=== PATIENT | female | born 1965 | race Two or more races ===

== ENCOUNTER 2018-04-12 09:22 | Emergency (ER) | payer MEDICAID ==
[~2018-04-12] VITALS: Ht 149.9 cm; Wt 72.0 kg
[~2018-04-12 09:22] MED LIST: ALBU8HFA PO; CYCL-1 PO; ESCI10TA PO; ESTR1TAB19 PO; PANT-47 PO; TRAM50TA2 PO
[2018-04-12] MEDS ORDERED: diphenhydrAMINE 50 mg/ml inj IV ONE (10:05)
[2018-04-12] MEDS ORDERED: proCHLORperazine 10 MG/2 ml inj IV ONE (10:05)
[2018-04-12 11:13] VITALS: BP 130/61
== END 2018-04-12 11:15 | disposition home or self-care (01) ==
LOC: ER 09:23
DX: G43.909 Migraine, unspecified, not intractable, without status migrainosus (principal); K21.9 Gastro-esophageal reflux disease without esophagitis; G89.29 Other chronic pain; Z90.410 Acquired total absence of pancreas; Z79.899 Other long term (current) drug therapy
CPT/HCPCS: 70450; 96374; 96375; 99284; J0780; J1200

== ENCOUNTER 2019-03-30 17:05 | Emergency (ER) | payer MEDICAID ==
[~2019-03-30] VITALS: Ht 149.9 cm; Wt 71.0 kg
[2019-03-30 18:03] VITALS: BP 112/72
== END 2019-03-30 18:07 | disposition home or self-care (01) ==
LOC: ER 17:06
DX: M79.605 Pain in left leg (principal); K21.9 Gastro-esophageal reflux disease without esophagitis; G89.29 Other chronic pain; F41.9 Anxiety disorder, unspecified; Z90.710 Acquired absence of both cervix and uterus; Z79.899 Other long term (current) drug therapy
CPT/HCPCS: 99281

== ENCOUNTER 2020-03-19 21:25 | Emergency (ER) | payer MEDICAID ==
[~2020-03-19] VITALS: Ht 149.9 cm; Wt 71.3 kg
[2020-03-19 22:05] LABS: CLARITY,URINE CLEAR (Clear); COLOR,URINE YELLOW (Yellow); GLUCOSE, URINE NEGATIVE (Neg); KETONES,URINE NEGATIVE (Neg); LEUKOCYTE ESTERASE ,URINE NEGATIVE (Neg); NITRITES, URINE NEGATIVE (Neg); OCCULT BLOOD,URINE MODERATE (Neg); PROTEIN,URINE NEGATIVE (Neg); URINE HCG NEGATIVE (NEG); UROBILINOGEN,URINE 0.2 E.U/dL (0.2-1.0)
[2020-03-19 22:15] LABS: BACTERIA,URINE FEW /HPF (Neg); MUCUS STRANDS FEW /LPF (Neg); RBC,URINE 0-2 /HPF (0-2); SQUAMOUS EPITHELIAL CELL,UR FEW /LPF (FEW); UA COLLECTION TYPE CLN CATCH MIDSTREAM
[2020-03-19 22:22] LABS: BASOPHILS # (AUTO) 0.1 X10'3 (0-0.2); BASOPHILS % (AUTO) 0.8 % (0-1); EOSINOPHILS # (AUTO) 0.2 X10'3 (0-0.9); EOSINOPHILS % (AUTO) 1.6 % (0-6); HEMATOCRIT 38.1 % (35.0-45.0); LYMPHOCYTES # (AUTO) 3.7 X10'3 (1.1-4.8); LYMPHOCYTES % (AUTO) 35.4 % (21-51); MEAN CORPUSCULAR HEMOGLOBIN 31.2 PG (27.0-31.0); MEAN CORPUSCULAR HGB CONC 34.1 g/dL (33.0-36.5); MEAN CORPUSCULAR VOLUME 91.3 FL (78-98); MEAN PLATELET VOLUME 8.7 FL (7.4-10.4); MONOCYTES # (AUTO) 0.7 X10'3 (0-0.9); MONOCYTES % (AUTO) 7.2 % (2-12); NEUTROPHILS # (AUTO) 5.7 X10'3 (1.8-7.7); PLATELET COUNT 294 X10'3 (140-440); RED BLOOD COUNT 4.17 X10'6 (4.20-5.60); RED CELL DISTRIBUTION WIDTH 13.1 % (11.5-14.5); WHITE BLOOD COUNT 10.3 X10'3 (4.5-11.0)
[2020-03-19 22:52] LABS: ALANINE AMINOTRANSFERASE 41 U/L (12-78); ALBUMIN 3.4 G/DL (3.4-5.0); ALBUMIN/GLOBULIN RATIO 0.8 (1.1-1.5); ALKALINE PHOSPHATASE 102 IU/L (46-116); ANION GAP 9 (8-16); ASPARTATE AMINO TRANSFERASE 33 U/L (10-37); BILIRUBIN,TOTAL 0.7 MG/DL (0.1-1.0); BLOOD UREA NITROGEN 20 MG/DL (7-18); CALCIUM 8.9 MG/DL (8.5-10.1); CHLORIDE 103 MMOL/L (99-107); CREATININE 1.05 MG/DL (0.40-0.90); GLUCOSE 91 MG/DL (70-104); LIPASE 270 U/L (73-393); POTASSIUM 3.4 MMOL/L (3.5-5.1); SODIUM 138 MMOL/L (135-145); TOTAL CARBON DIOXIDE 25.8 MMOL/L (24-32); TOTAL PROTEIN 7.8 G/DL (6.4-8.2); eGFR 54 ML/MIN
[2020-03-19] MEDS ORDERED: ketorolac tromethamine 15mg/ml inj. IM ONE (23:00)
[2020-03-19] MEDS ORDERED: ondansetron 4mg rapidly disintigrating tab PO ONE (23:00)
[2020-03-19] MEDS ORDERED: metroNIDAZOLE 500mg tablet PO ONE (23:40)
[2020-03-19] MEDS ORDERED: sulfamethoxazole/trimethoprim DS (800/160mg) tablet PO ONE (23:40)
[2020-03-19] MEDS ORDERED: METR-159 PO (23:48)
[2020-03-19] MEDS ORDERED: SULF1TAB49 PO (23:48)
[2020-03-19] MEDS ORDERED: ONDA4TAB6 PO (23:50)
[2020-03-19 23:57] VITALS: BP 130/80
== END 2020-03-19 23:59 | disposition home or self-care (01) ==
LOC: ER 21:25
DX: K52.9 Noninfective gastroenteritis and colitis, unspecified (principal); G43.909 Migraine, unspecified, not intractable, without status migrainosus; K21.9 Gastro-esophageal reflux disease without esophagitis; G89.29 Other chronic pain; F41.9 Anxiety disorder, unspecified; Z90.710 Acquired absence of both cervix and uterus; Z79.899 Other long term (current) drug therapy
CPT/HCPCS: 36415; 74176; 80053; 81001; 81025; 83690; 85025; 87088; 96372; 99284; J1885; J3490

== ENCOUNTER 2020-04-17 16:09 | Emergency (ER) | payer MEDICAID ==
[~2020-04-17] VITALS: Ht 149.9 cm; Wt 70.5 kg
[~2020-04-17 16:09] MED LIST changes: +ONDA4TAB6 PO
[2020-04-17 16:25] VITALS: BP 109/64
[2020-04-17 17:35] LABS: BASOPHILS # (AUTO) 0.1 X10'3 (0-0.2); BASOPHILS % (AUTO) 0.7 % (0-1); EOSINOPHILS # (AUTO) 0.2 X10'3 (0-0.9); EOSINOPHILS % (AUTO) 1.8 % (0-6); HEMATOCRIT 36.9 % (35.0-45.0); HEMOGLOBIN 12.6 g/dl (12.0-16.0); LYMPHOCYTES # (AUTO) 3.4 X10'3 (1.1-4.8); LYMPHOCYTES % (AUTO) 34.7 % (21-51); MEAN CORPUSCULAR HEMOGLOBIN 31.3 PG (27.0-31.0); MEAN CORPUSCULAR HGB CONC 34.1 g/dL (33.0-36.5); MEAN PLATELET VOLUME 8.5 FL (7.4-10.4); MONOCYTES # (AUTO) 0.9 X10'3 (0-0.9); MONOCYTES % (AUTO) 8.7 % (2-12); NEUTROPHILS # (AUTO) 5.3 X10'3 (1.8-7.7); NEUTROPHILS % (AUTO) 54.1 % (42-75); PLATELET COUNT 298 X10'3 (140-440); RED BLOOD COUNT 4.01 X10'6 (4.20-5.60); RED CELL DISTRIBUTION WIDTH 13.5 % (11.5-14.5); WHITE BLOOD COUNT 9.8 X10'3 (4.5-11.0)
[2020-04-17 17:50] LABS: ALANINE AMINOTRANSFERASE 38 U/L (12-78); ALBUMIN 3.7 G/DL (3.4-5.0); ALKALINE PHOSPHATASE 128 IU/L (46-116); ANION GAP 6 (8-16); ASPARTATE AMINO TRANSFERASE 30 U/L (10-37); BILIRUBIN,TOTAL 0.5 MG/DL (0.1-1.0); BLOOD UREA NITROGEN 20 MG/DL (7-18); BUN/CREATININE RATIO 24.7 (6.6-38.0); C-REACTIVE PROTEIN 0.75 MG/DL (0.0-0.5); CALCIUM 8.5 MG/DL (8.5-10.1); CHLORIDE 104 MMOL/L (99-107); CREATININE 0.81 MG/DL (0.40-0.90); GLUCOSE 94 MG/DL (70-104); POTASSIUM 3.9 MMOL/L (3.5-5.1); SODIUM 138 MMOL/L (135-145); TOTAL CARBON DIOXIDE 28.2 MMOL/L (24-32); TOTAL PROTEIN 7.5 G/DL (6.4-8.2); eGFR 73 ML/MIN
[2020-04-17] MEDS ORDERED: ketorolac tromethamine 15mg/ml inj. IM ONE (17:55)
[2020-04-17] MEDS ORDERED: triamcinolone acetonide 40mg/ml inj IM ONE (17:55)
== END 2020-04-17 18:09 | disposition home or self-care (01) ==
LOC: ER 16:09
DX: M79.672 Pain in left foot (principal); M25.572 Pain in left ankle and joints of left foot; K21.9 Gastro-esophageal reflux disease without esophagitis; G89.29 Other chronic pain; F41.9 Anxiety disorder, unspecified; Z90.710 Acquired absence of both cervix and uterus; Z79.899 Other long term (current) drug therapy
CPT/HCPCS: 36415; 73610; 80053; 85025; 85651; 86140; 96372; 99284; J1885; J3301

== ENCOUNTER 2020-07-12 10:51 | Emergency (ER) | payer MEDICAID ==
[~2020-07-12] VITALS: Ht 149.9 cm; Wt 74.0 kg
[2020-07-12] MEDS ORDERED: METR500T PO (11:16)
[2020-07-12] MEDS ORDERED: SULF1TAB49 PO (11:16)
[2020-07-12 11:30] VITALS: BP 113/67
== END 2020-07-12 11:31 | disposition home or self-care (01) ==
LOC: ER 10:51
DX: R10.32 Left lower quadrant pain (principal); G43.909 Migraine, unspecified, not intractable, without status migrainosus; K21.9 Gastro-esophageal reflux disease without esophagitis; G89.29 Other chronic pain; F41.9 Anxiety disorder, unspecified; Z90.710 Acquired absence of both cervix and uterus; Z79.899 Other long term (current) drug therapy
CPT/HCPCS: 99283

== ENCOUNTER 2020-08-26 16:09 | Emergency (ER) | payer MEDICAID ==
[~2020-08-26] VITALS: Ht 149.9 cm; Wt 72.0 kg
[2020-08-26 16:23] VITALS: BP 112/59
[2020-08-26] MEDS ORDERED: ketorolac trometh. 30mg/ml inj. IM ONE (17:15)
[2020-08-26] MEDS ORDERED: cyclobenzaprine 10mg tablet PO ONE (17:15)
[2020-08-26] MEDS ORDERED: IBUP-1984 PO (17:17)
[2020-08-26] MEDS ORDERED: CYCL-394 PO (17:17)
== END 2020-08-26 18:07 | disposition home or self-care (01) ==
LOC: ER 16:09
DX: M54.31 Sciatica, right side (principal); M54.89 Other dorsalgia; G43.909 Migraine, unspecified, not intractable, without status migrainosus; K21.9 Gastro-esophageal reflux disease without esophagitis; G89.29 Other chronic pain; F41.9 Anxiety disorder, unspecified; Z90.710 Acquired absence of both cervix and uterus; Z79.899 Other long term (current) drug therapy
CPT/HCPCS: 96372; 99283; J1885

== ENCOUNTER 2020-08-31 12:48 | Emergency (ER) | payer MEDICAID ==
[~2020-08-31] VITALS: Ht 149.9 cm; Wt 72.0 kg
[~2020-08-31 12:48] MED LIST changes: +CYCL-394 PO; +IBUP-1984 PO
[2020-08-31 12:52] VITALS: BP 116/42
[2020-08-31] MEDS ORDERED: DICL100G30 TOP (14:13)
== END 2020-08-31 14:36 | disposition home or self-care (01) ==
LOC: ER 12:48
DX: M79.671 Pain in right foot (principal); M79.672 Pain in left foot; G43.909 Migraine, unspecified, not intractable, without status migrainosus; K21.9 Gastro-esophageal reflux disease without esophagitis; G89.29 Other chronic pain; Z90.710 Acquired absence of both cervix and uterus; Z72.89 Other problems related to lifestyle; Z79.899 Other long term (current) drug therapy
CPT/HCPCS: 99283

== ENCOUNTER 2021-10-28 20:56 | Emergency (ER) | payer MEDICAID ==
[~2021-10-28] VITALS: Ht 149.9 cm; Wt 72.7 kg
[~2021-10-28 20:56] MED LIST changes: -CYCL-394 PO; +DICL100G30 TOP; -IBUP-1984 PO
[2021-10-28] MEDS ORDERED: ERYT1OIN6 RIGHTEYE (23:02)
[2021-10-28] MEDS ORDERED: erythromycin ophthalmic ointment 1gm tube RIGHTEYE ONE (23:05)
[2021-10-28 23:22] VITALS: BP 117/79
--- NOTE | 2021-10-28 23:27 | NUR ---
MEDICATION ADMINISTERED TO PATIENT. SHE TOLERATED WELL
== END 2021-10-28 23:29 | disposition home or self-care (01) ==
LOC: ER 22:31
DX: S05.01XA Injury of conjunctiva and corneal abrasion without foreign body, right eye, initial encounter (principal); H11.31 Conjunctival hemorrhage, right eye; G43.909 Migraine, unspecified, not intractable, without status migrainosus; K21.9 Gastro-esophageal reflux disease without esophagitis; G89.29 Other chronic pain; M54.9 Dorsalgia, unspecified; F31.9 Bipolar disorder, unspecified; Z79.899 Other long term (current) drug therapy; W22.8XXA Striking against or struck by other objects, initial encounter; Y93.89 Activity, other specified; Y92.89 Other specified places as the place of occurrence of the external cause; Y99.8 Other external cause status
CPT/HCPCS: 99283

== ENCOUNTER 2022-03-03 17:57 | Emergency (ER) | payer MEDICAID ==
[~2022-03-03] VITALS: Ht 149.9 cm; Wt 73.0 kg
[2022-03-03 18:58] VITALS: BP 134/79
== END 2022-03-03 22:56 | disposition home or self-care (01) ==
LOC: ER 17:57
DX: Q15.9 Congenital malformation of eye, unspecified (principal); G43.909 Migraine, unspecified, not intractable, without status migrainosus; F41.9 Anxiety disorder, unspecified; G89.29 Other chronic pain; F32.9 Major depressive disorder, single episode, unspecified; Z90.710 Acquired absence of both cervix and uterus; Z98.890 Other specified postprocedural states; Z79.899 Other long term (current) drug therapy
CPT/HCPCS: 99281

== ENCOUNTER 2022-05-09 10:41 | Emergency (ER) | payer MEDICAID ==
[~2022-05-09] VITALS: Ht 149.9 cm; Wt 72.7 kg
[2022-05-09 10:55] VITALS: BP 124/75
[2022-05-09] MEDS ORDERED: ALBU6.7H9 INH (13:32)
== END 2022-05-09 14:22 | disposition home or self-care (01) ==
LOC: ER 10:41
DX: J45.21 Mild intermittent asthma with (acute) exacerbation (principal); Z20.822 Contact with and (suspected) exposure to COVID-19; J06.9 Acute upper respiratory infection, unspecified; G43.909 Migraine, unspecified, not intractable, without status migrainosus; G89.29 Other chronic pain; M54.9 Dorsalgia, unspecified; F31.9 Bipolar disorder, unspecified; Z79.899 Other long term (current) drug therapy
CPT/HCPCS: 71045; 87635; 93005; 99285; C9803

== ENCOUNTER 2022-09-22 17:45 | Emergency (ER) | payer MEDICAID ==
[~2022-09-22] VITALS: Ht 149.9 cm; Wt 71.4 kg
[~2022-09-22 17:45] MED LIST changes: +ALBU6.7H14 INH
[2022-09-22 20:00] VITALS: BP 111/70
[2022-09-22 20:38] LABS: CLARITY,URINE SLIGHTLY CLOUDY (Clear); COLOR,URINE ORANGE (Yellow)
[2022-09-22 20:58] LABS: UA COLLECTION TYPE CLN CATCH MIDSTREAM
[2022-09-22 21:06] LABS: BACTERIA,URINE FEW /HPF (Neg); MUCUS STRANDS FEW /LPF (Neg); RBC,URINE 0-2 /HPF (0-2); SQUAMOUS EPITHELIAL CELL,UR FEW /LPF (FEW)
[2022-09-22] MEDS ORDERED: cephalexin 250mg capsule PO ONE (22:05)
[2022-09-22] MEDS ORDERED: CEFD300C21 PO (22:08)
--- NOTE | 2022-09-25 09:45 | NUR ---
LAB REPORT CAME BACK WITH URINE CULTURE RESULT AND SENSITIVITY. PATIENT WAS GIVEN CEFDINIR UPON DC FROM ER VISIT, BUT THE BACTERIA IS RESISTENT TO THIS MED. ER MD, DR. SETHI, NOTIFIED OF THIS RESULT AND ORDER FOR BACTRIM WAS PRESCRIBED. NEW MEDICATION (BACTRIM) WAS PHONED IN TO [facility] [address] [address] [facility]. PATIENT IS AWARE OF THE CHANGE IN MEDICATIONS AND WILL CARDIAC CATH RN NEW MEDICATION TODAY.
== END 2022-09-22 22:21 | disposition home or self-care (01) ==
LOC: ER 17:46
DX: N39.0 Urinary tract infection, site not specified (principal); G43.909 Migraine, unspecified, not intractable, without status migrainosus; K21.9 Gastro-esophageal reflux disease without esophagitis; G89.29 Other chronic pain; M54.50 Low back pain, unspecified; Z90.710 Acquired absence of both cervix and uterus; Z87.891 Personal history of nicotine dependence
CPT/HCPCS: 81001; 87077; 87088; 87186; 99283

== ENCOUNTER 2023-02-14 15:46 | Emergency (ER) | payer MEDICAID ==
[~2023-02-14] VITALS: Ht 149.9 cm; Wt 80.0 kg
[2023-02-14 16:49] LABS: BASOPHILS # (AUTO) 0.1 X10'3 (0-0.2); BASOPHILS % (AUTO) 0.6 % (0-1); EOSINOPHILS # (AUTO) 0.3 X10'3 (0-0.9); EOSINOPHILS % (AUTO) 3.9 % (0-6); HEMOGLOBIN 12.3 g/dl (12.0-16.0); LYMPHOCYTES # (AUTO) 2.5 X10'3 (1.1-4.8); LYMPHOCYTES % (AUTO) 29.2 % (21-51); MEAN CORPUSCULAR HEMOGLOBIN 29.9 PG (27.0-31.0); MEAN CORPUSCULAR HGB CONC 33.2 g/dL (33.0-36.5); MEAN CORPUSCULAR VOLUME 90.2 FL (78-98); MEAN PLATELET VOLUME 8.6 FL (7.4-10.4); MONOCYTES # (AUTO) 0.7 X10'3 (0-0.9); MONOCYTES % (AUTO) 8.4 % (2-12); NEUTROPHILS % (AUTO) 57.9 % (42-75); PLATELET COUNT 303 X10'3 (140-440); RED CELL DISTRIBUTION WIDTH 13.9 % (11.5-14.5); WHITE BLOOD COUNT 8.7 X10'3 (4.5-11.0)
[2023-02-14 17:08] LABS: ALANINE AMINOTRANSFERASE 45 U/L (12-78); ALBUMIN 3.5 G/DL (3.4-5.0); ALBUMIN/GLOBULIN RATIO 0.8 (1.1-1.5); ALKALINE PHOSPHATASE 143 IU/L (46-116); AMYLASE 85 U/L (25-115); ANION GAP 8 (8-16); ASPARTATE AMINO TRANSFERASE 39 U/L (10-37); BILIRUBIN,TOTAL 0.5 MG/DL (0.1-1.0); BLOOD UREA NITROGEN 15 MG/DL (7-18); CHLORIDE 105 MMOL/L (99-107); CREATININE 0.88 MG/DL (0.40-0.90); GLUCOSE 142 MG/DL (70-104); LIPASE 338 U/L (73-393); POTASSIUM 3.5 MMOL/L (3.5-5.1); SODIUM 142 MMOL/L (135-145); TOTAL CARBON DIOXIDE 28.6 MMOL/L (24-32); TOTAL PROTEIN 7.9 G/DL (6.4-8.2); eGFR 66 ML/MIN
[2023-02-14] MEDS ORDERED: PSYL575P22 PO (17:43)
[2023-02-14] MEDS ORDERED: AMOX-117 PO (17:43)
[2023-02-14] MEDS ORDERED: amox tr/potassium clavulanate 875/125mg TAB PO ONE (17:45)
[2023-02-14 17:58] VITALS: BP 140/68
== END 2023-02-14 17:59 | disposition home or self-care (01) ==
LOC: ER 15:46
DX: K52.9 Noninfective gastroenteritis and colitis, unspecified (principal); G43.909 Migraine, unspecified, not intractable, without status migrainosus; K21.9 Gastro-esophageal reflux disease without esophagitis; I50.9 Heart failure, unspecified; Z90.710 Acquired absence of both cervix and uterus
CPT/HCPCS: 36415; 80053; 82150; 83690; 85025; 99283

== ENCOUNTER 2023-12-05 12:26 | Emergency (ER) | payer MEDICAID ==
[~2023-12-05] VITALS: Ht 149.9 cm; Wt 68.2 kg
[~2023-12-05 12:26] MED LIST changes: +CEPH-585 PO; -DICL100G30 TOP; +DICL100G59 TOP; +PSYL575P22 PO
[2023-12-05 12:37] VITALS: BP 124/69; PULSE 79; RESP 16; TEMP 98; O2SAT 95
[2023-12-05 13:32] LABS: CLARITY,URINE SLIGHTLY CLOUDY (Clear); COLOR,URINE ORANGE (Yellow); UA COLLECTION TYPE CLN CATCH MIDSTREAM
[2023-12-05 13:34] LABS: HYALINE CASTS 0-3 /LPF (NEGATIVE); MUCUS STRANDS MODERATE /LPF (Neg); SQUAMOUS EPITHELIAL CELL,UR MANY /LPF (FEW)
[2023-12-05 13:35] LABS: BACTERIA,URINE 2+ /HPF (Neg); TRANSITIONAL EPI CELLS,URINE FEW /HPF; WBC,URINE 20-30 /HPF (0-4)
[2023-12-05 13:36] LABS: WBC CLUMPS,URINE FEW /HPF (NEGATIVE)
[2023-12-05] MEDS ORDERED: CEPH-585 PO (13:42)
== END 2023-12-05 13:59 | disposition home or self-care (01) ==
LOC: ER 12:27
DX: N39.0 Urinary tract infection, site not specified (principal); Z87.440 Personal history of urinary (tract) infections; G43.909 Migraine, unspecified, not intractable, without status migrainosus; G89.29 Other chronic pain; Z90.710 Acquired absence of both cervix and uterus; Z86.73 Personal history of transient ischemic attack (TIA), and cerebral infarction without residual deficits; Z79.2 Long term (current) use of antibiotics; Z79.899 Other long term (current) drug therapy
CPT/HCPCS: 81001; 99283

== ENCOUNTER 2024-06-19 14:00 | Emergency (ER) | payer MEDICAID ==
[~2024-06-19] VITALS: Ht 149.9 cm; Wt 60.0 kg
[~2024-06-19 14:00] MED LIST changes: -CEPH-585 PO
[2024-06-19] MEDS ORDERED: iohexol 350MG/ML 100ml bottle IV ONE (14:08)
[2024-06-19 14:26] LABS: BASOPHILS # (AUTO) 0.1 X10'3 (0-0.2); BASOPHILS % (AUTO) 0.6 % (0-1); EOSINOPHILS # (AUTO) 0.3 X10'3 (0-0.9); EOSINOPHILS % (AUTO) 3.3 % (0-6); HEMOGLOBIN 11.7 g/dl (12.0-16.0); LYMPHOCYTES # (AUTO) 2.3 X10'3 (1.1-4.8); LYMPHOCYTES % (AUTO) 28.6 % (21-51); MEAN CORPUSCULAR HEMOGLOBIN 30.4 PG (27.0-31.0); MEAN CORPUSCULAR HGB CONC 33.3 g/dL (33.0-36.5); MEAN CORPUSCULAR VOLUME 91.3 FL (78-98); MEAN PLATELET VOLUME 9.8 FL (7.4-10.4); MONOCYTES # (AUTO) 0.5 X10'3 (0-0.9); MONOCYTES % (AUTO) 6.1 % (2-12); NEUTROPHILS # (AUTO) 4.9 X10'3 (1.8-7.7); NEUTROPHILS % (AUTO) 61.4 % (42-75); PLATELET COUNT 271 X10'3 (140-440); RED BLOOD COUNT 3.83 X10'6 (4.20-5.60); RED CELL DISTRIBUTION WIDTH 13.4 % (11.5-14.5)
[2024-06-19 14:30] LABS: ALBUMIN 3.2 G/DL (3.4-5.0); ANION GAP 5 (8-16); BLOOD UREA NITROGEN 17 MG/DL (7-18); BUN/CREATININE RATIO 20.7 (10.0-20.0); CALCIUM 8.3 MG/DL (8.5-10.1); CHLORIDE 105 MMOL/L (99-107); CREATININE 0.82 MG/DL (0.40-0.90); GLUCOSE 108 MG/DL (70-104); SODIUM 137 MMOL/L (135-145); TOTAL CARBON DIOXIDE 26.9 MMOL/L (24-32); eCRCL 50 ML/MIN; eGFR 71 ML/MIN
[2024-06-19 14:39] LABS: APTT 25 SECONDS (22-32); INR 1.1 INR; PROTHROMBIN TIME 11.6 SECONDS (9.0-12.0)
[2024-06-19] MEDS: ondansetron/PF 4mg/2ml inj IV ONE (16:09)
[2024-06-19] MEDS: acetaminophen 325mg tablet PO ONE (16:09)
[2024-06-19] MEDS: ketorolac trometh 15mg/ml vial 15 MG/ML ML IV ONE (16:15)
[2024-06-19 16:26] LABS: BILIRUBIN,URINE NEGATIVE (Neg); CLARITY,URINE CLEAR (Clear); COLOR,URINE YELLOW (Yellow); GLUCOSE, URINE NEGATIVE (Neg); KETONES,URINE NEGATIVE (Neg); LEUKOCYTE ESTERASE ,URINE NEGATIVE (Neg); NITRITES, URINE NEGATIVE (Neg); OCCULT BLOOD,URINE NEGATIVE (Neg); PROTEIN,URINE NEGATIVE (Neg); UROBILINOGEN,URINE 0.2 E.U/dL (0.2-1.0)
[2024-06-19 16:39] LABS: URINE AMPHETAMINE SCREEN NEGATIVE (Neg); URINE BARBITUATE SCREEN NEGATIVE (Neg); URINE BENZODIAZEPINES SCREEN NEGATIVE (Neg); URINE CANNABINOID SCREEN NEGATIVE (Neg); URINE COCAINE SCREEN NEGATIVE (Neg); URINE METHADONE SCREEN NEGATIVE (Neg); URINE OPIATE SCREEN NEGATIVE (Neg); URINE PHENCYCLIDINE SCREEN NEGATIVE (Neg)
[2024-06-19 16:42] LABS: UA COLLECTION TYPE CLN CATCH MIDSTREAM
[2024-06-19 17:06] VITALS: BP 125/69; PULSE 69; RESP 12; TEMP 98.3; O2SAT 98
== END 2024-06-19 17:20 | disposition home or self-care (01) ==
LOC: ER 14:00
DX: G43.109 Migraine with aura, not intractable, without status migrainosus (principal); K21.9 Gastro-esophageal reflux disease without esophagitis; G89.29 Other chronic pain; M54.9 Dorsalgia, unspecified; F41.9 Anxiety disorder, unspecified; F32.A Depression, unspecified; Z79.899 Other long term (current) drug therapy; Z86.73 Personal history of transient ischemic attack (TIA), and cerebral infarction without residual deficits; Z90.710 Acquired absence of both cervix and uterus
CPT/HCPCS: 36415; 70450; 70496; 70498; 71045; 80048; 80305; 81003; 82948; 84443; 85025; 85610; 85730; 93005; 96374; 96375; 99285; J1885; J2405; Q9967

== ENCOUNTER 2025-04-19 18:45 | Emergency (ER) | payer MEDICAID ==
[~2025-04-19] VITALS: Ht 149.9 cm; Wt 62.5 kg
--- NOTE | 2025-04-19 18:49 | Physician Documentation ---
History of Present Illness General Stated Complaint: CHEST PAIN Time Seen by MD: 18:48 Primary Medical Doctor: [facility] History of Present Illness Initial Comments The patient is a 59-year-old female who presents with a complaint of left-sided chest pain and chest wall tenderness as well as pain that worsens when she moves her left arm. The patient states he also has some pleuritic chest pain she states it hurts when she takes a deep breath and she feels slightly short of breath. The patient states symptoms gradually started this morning and they progress to with the point where the pain is approximately an 8/10. She states she did not take anything for the pain. She has no heart history she has a family history and she is not currently smoker she also does not have any hypertension she does have an estrogen patch that she takes. She denies any history of blood clots in the past. Patient denies any fevers chills nausea or vomiting the patient's symptoms are moderate and persistent. Medication Reconciliation Allergies: Coded Allergies: No Known Allergies (Unverified , 06/19/24) Scheduled Albuterol Sulfate (Proventil Hfa), 2 PUFFS INH Q6H Diclofenac Sodium (Diclofenac Sodium), 1 APPLIC TOP Q6H Escitalopram Oxalate (Lexapro), 1 TABLET PO DAILY, (Reported) Estradiol (Estradiol), 1 TAB PO DAILY, (Reported) Ondansetron Hcl (Zofran), 1 TAB PO Q12H PRN Pantoprazole Sodium (PROTONIX tablet), 1 TABLET PO BID, (Reported) Psyllium Husk (with Sugar) (Metamucil Powder), 5 ML PO DAILY Scheduled PRN Cyclobenzaprine* (Cyclobenzaprine*), 1 TABLET PO Q6H PRN for muscle spasms, (Reported) Tramadol Hcl (Tramadol Hcl), 1 TABLET PO Q4H PRN for pain, (Reported) albuterol inhaler (Pro-Air Inhaler), 1-2 PUFFS PO Q4H PRN for SOB or wheezing Past Medical History Past Medical History: CVA/TIA/Stroke, Headache, Migraine, Diverticulitis, GERD, Chronic Back Pain, Anxiety, Depression Past Surgical History: hysterectomy Alcohol Use: Rarely Drug Use: none Lives with: Family Lives In: Home Review of Systems All Other Systems at this time: Reviewed and Negative Physical Exam Physical Exam Physical Exam VITALS: Reviewed and as above. GENERAL: Alert, no apparent distress. HEENT: Normocephalic, atraumatic, PERRL, EOMI, dry mucosa, no erythema RESPIRATORY: Lungs clear, normal breath sounds, no respiratory distress. CHEST: No accessory muscle use, no retractions CV: Regular rate, rhythm, no edema, no murmur, No: JVD GI: Soft, non-tender, bowels sounds present, no rebound, guarding, or rigidity BACK: No CVA tenderness, or swelling MUSCULOSKELETAL: Tender upper left chest wall some pain with range of motion of the left shoulder particularly with abduction of the left shoulder. SKIN: Warm and dry, no rash NEURO: Oriented x4, No motor or sensory deficit PSYCH: Normal mood and affect, no agitation Progress Results/Orders Results/Orders Orders - OHCHAD BURTON MD Chest,Single View (04/19/25 19:10) Saline Lock (04/19/25 18:55) Monitor (04/19/25 18:55) Oxygen (04/19/25 18:55) Completed Orders - MTCHAD BURTON MD Cbc/Diff (04/19/25 18:55) MG (04/19/25 18:55) PBNP (04/19/25 18:55) Chest,Single View (04/19/25 19:10) BMP (04/19/25 18:55) Hs Troponin I W Calculations (04/19/25 18:55) D-Dimer (04/19/25 18:58) Ketorolac Trometh 30mg/Ml Vial (Toradol (04/19/25 19:20) Vital Signs 04/19/25 04/19/25 04/19/25 04/19/25 18:50 19:24 19:27 20:27 Temp 98.3 Pulse 85 83 Resp 16 16 16 18 B/P (MAP) 146/64 128/67 (87) Pulse Ox 98 99 O2 Flow Rate 0 04/19/25 20:28 Temp 98.3 Pulse 80 Resp 16 B/P (MAP) 128/67 Pulse Ox 100 Laboratory Tests Test 04/19/25 18:59 White Blood Count 9.2 Red Blood Count 4.25 Hemoglobin 13.0 Hematocrit 38.1 Mean Corpuscular Volume 89.5 Mean Corpuscular Hemoglobin 30.5 Mean Corpuscular Hemoglobin Concent 34.1 Red Cell Distribution Width 13.4 Platelet Count 307 Mean Platelet Volume 9.7 Neutrophils (%) (Auto) 56.7 Lymphocytes (%) (Auto) 30.1 Monocytes (%) (Auto) 7.1 Eosinophils (%) (Auto) 5.2 Basophils (%) (Auto) 0.9 Neutrophils # (Auto) 5.2 Lymphocytes # (Auto) 2.8 Monocytes # (Auto) 0.6 Eosinophils # (Auto) 0.5 Basophils # (Auto) 0.1 CBC Comment D-Dimer 0.51 H D-Dimer Comment Sodium Level 140 Potassium Level 3.7 Chloride Level 105 Carbon Dioxide Level 26.6 Anion Gap 8 Blood Urea Nitrogen 14 Creatinine 0.71 Estimated GFR/1.73 m2 84 BUN/Creatinine Ratio 19.7 Glucose Level 115 H Calcium Level 8.8 Magnesium Level 1.8 Troponin I High Sensitivity 4 Pro-B-Type Natriuretic Peptide < 30 Albumin 3.5 Chemistry Comments Medical Decision Making Findings Patient's EKG was interpreted me as showing a normal sinus rhythm with a rate of [address]-elevation or ST-depression and a there was a normal axis the patient's EKG was interpreted as normal EKG her pulse oximetry has been interpreted as normal and adequate, and nurse monitoring was interpreted as a sinus rhythm. The patient presented with a reproducible left-sided chest pain the patient does take an estrogen based patch, however her D-dimer was 0.51 and given a age based D-dimer scale she is negative for high-risk for pulmonary embolisms and given the fact that this pain is reproducible I do not feel she has a pulmonary embolism other etiologies considered for cardiac ischemia as well as infectious etiologies he has been not supported by the clinical evidence the patient's heart score is two which puts her at a extremely low risk for a cardiac event. The patient will be discharged with instructions to return for worsening of her symptoms. Labs were reviewed prior hospitalizations were reviewed the patient's chest x-ray has been independently interpreted by me as showing a normal cardiac silhouette normal mediastinum and normal-appearing lung quinn the patient was given a shot of Toradol with some improvement the patient will be advised to use NSAIDs at home the patient is being discharged Departure Disposition: 01 HOME / SELF CARE / HOMELESS Impression: Primary Impression: Chest wall pain Discharge Instructions: Chest Wall Pain Referrals: NO PRIMARY CARE PROVIDER (PCP) Signature Scribe Signature: No scribe Attestation: The note accurately reflects work and decisions made by me.Chad Gibbs MD 04/21/25 14:52 CHAD GIBBS MD Apr 19, 2025 18:49
[2025-04-19 19:09] LABS: MEAN PLATELET VOLUME 9.7 FL (7.4-10.4); RED CELL DISTRIBUTION WIDTH 13.4 % (11.5-14.5)
--- NOTE | 2025-04-19 19:21 | RADIOLOGY REPORT ---
CHEST RADIOGRAPH Indication: CP Technique: Single frontal view of the chest was obtained Comparison: DI CHEST,SINGLE VIEW on DOS: 06/19/24, CHEST,SINGLE VIEW on DOS: 05/09/22 FINDINGS: Lines and Tubes: None Lungs: No focal consolidation. Pleura: No effusion. No pneumothorax. Cardiomediastinal contours: Unremarkable Bones: No acute osseous abnormality. IMPRESSION: No acute cardiopulmonary disease.
[2025-04-19] MEDS: ketorolac trometh 30MG/ML vial 30 MG/ML VIAL IV ONE (19:24)
[2025-04-19 19:28] LABS: CREATININE 0.71 MG/DL (0.40-0.90); PRO BRAIN NATRIURETIC PEPTIDE < 30 PG/ML (0-125); TOTAL CARBON DIOXIDE 26.6 MMOL/L (24-32); eCRCL 57 ML/MIN; eGFR 84 ML/MIN
[2025-04-19 20:28] VITALS: BP 128/67; PULSE 80; RESP 16; TEMP 98.3; O2SAT 100
--- NOTE | 2025-04-20 05:43 | ELECTROCARDIOGRAPH REPORT ---
[facility] Test Date: 2025-04-19 Test Time: 18:52:55 Pat Name: PRANEETH HEAD Department: EMERGENCY ROOM Room: Gender: F Feed Crusher: CAMILA : 1965 Requested By: DEPARTMENT EMERGENCY Order Number: [id number] Reading MD: Measurements Intervals [place] Rate: 82 P: 69 WI: 156 QRS: -27 QRSD: 97 T: 70 QT: 405 QTc: 473 Interpretive Statements Sinus rhythm Borderline left axis deviation Please click the below link to view image of tracing.
== END 2025-04-19 20:30 | disposition home or self-care (01) ==
LOC: ER 18:45
DX: R07.89 Other chest pain (principal); G43.909 Migraine, unspecified, not intractable, without status migrainosus; K21.9 Gastro-esophageal reflux disease without esophagitis; F41.9 Anxiety disorder, unspecified; F32.A Depression, unspecified; Z86.73 Personal history of transient ischemic attack (TIA), and cerebral infarction without residual deficits; Z90.710 Acquired absence of both cervix and uterus; Z79.899 Other long term (current) drug therapy
CPT/HCPCS: 36415; 71045; 80048; 83735; 83880; 84484; 85025; 85379; 93005; 96374; 99285; J1885

== ENCOUNTER 2025-07-20 09:21 | Emergency (ER) | payer MEDICAID ==
[~2025-07-20] VITALS: Ht 149.9 cm; Wt 60.5 kg
[2025-07-20 10:01] LABS: MEAN PLATELET VOLUME 9.4 FL (7.4-10.4); RED CELL DISTRIBUTION WIDTH 13.0 % (11.5-14.5)
[2025-07-20 10:18] LABS: CREATININE 0.71 MG/DL (0.40-0.90); TOTAL CARBON DIOXIDE 27.7 MMOL/L (24-32); eCRCL 57 ML/MIN; eGFR 84 ML/MIN
--- NOTE | 2025-07-20 10:21 | Physician Documentation ---
History of Present Illness Chief Complaint: Abdominal Pain Stated Complaint: LOWER ABD PAIN Time Seen by MD: 10:01 [facility] Mode of Arrival: Ambulatory, Dropped Off HPI 59-year-old female who presents to the emergency department with a complaint of lower abdominal pain for a week that has worsened over the last 24-48 hours associated with mild nausea and low-grade fever. Reports she has a past medical history of diverticulitis yet denies tenesmus at this time, loose stool and/or bloody stool. Medication Reconciliation Allergies: Coded Allergies: No Known Allergies (Unverified , 07/20/25) Scheduled Albuterol Sulfate (Proventil Hfa), 2 PUFFS INH Q6H Amox Tr/Potassium Clavulanate 875/125 MG (Augmentin 875/125 MG), 1 TAB PO BID Ciprofloxacin HCl (Ciprofloxacin HCl), 1 TAB PO BID Diclofenac Sodium (Diclofenac Sodium), 1 APPLIC TOP Q6H Escitalopram Oxalate (Lexapro), 1 TABLET PO DAILY, (Reported) Estradiol (Estradiol), 1 TAB PO DAILY, (Reported) Metronidazole* (Flagyl*), 1 TABLET PO TID Ondansetron Hcl (Zofran), 1 TAB PO Q12H PRN Pantoprazole Sodium (PROTONIX tablet), 1 TABLET PO BID, (Reported) Psyllium Husk (with Sugar) (Metamucil Powder), 5 ML PO DAILY Scheduled PRN Cyclobenzaprine* (Cyclobenzaprine*), 1 TABLET PO Q6H PRN for muscle spasms, (Reported) Hydrocodone Bit/Acetaminophen 5/325 MG ([place] 5/325 MG), 1 TAB PO Q6H PRN for pain Tramadol Hcl (Tramadol Hcl), 1 TABLET PO Q4H PRN for pain, (Reported) albuterol inhaler (Pro-Air Inhaler), 1-2 PUFFS PO Q4H PRN for SOB or wheezing Past Medical History Past Medical History: CVA/TIA/Stroke, Headache, Migraine, Diverticulitis, GERD, Chronic Back Pain, Anxiety, Depression Past Surgical History: hysterectomy Patient History: (CHF) Congestive heart failure FATHER, Onset:Unknown (COPD) Chronic obstructive lung disease FATHER, Onset:Unknown (CVA) Cerebrovascular accident MOTHER, Onset:60 years & older ([place]) Myocardial infarction FATHER, Onset:60 years & older Asthma MOTHER, Onset:Unknown Alcohol Use: Rarely Drug Use: none Lives with: Family Lives In: Home Review of Systems All Other Systems at this time: Reviewed and Negative Gastrointestinal: Reports: abdominal pain, nausea, poor fluid intake; Denies: melena, hematemesis, hematochezia, rectal bleeding Genitourinary: Denies: burning, dysuria, frequency, flank pain, hematuria Physical Exam Vital Signs: RN Vital Signs have been reviewed: Yes, Temperature: 98.2, Source: Oral, Heart Rate: 88, Respiratory Rate: 14, BP: 114/73, Pulse Oximetry: 96, Weight: 60.450 Oxygen Flow Rate: 0 General Appearance: alert, WD/WN, mild distress EENT: PERRL/EOMI Neck: normal inspection Respiratory: lungs clear Chest: no accessory muscle use Cardiovascular: normal peripheral pulses Gastrointestinal: tenderness (Left lower quadrant and suprapubic) Back: normal inspection Extremities: normal range of motion Neurologic: oriented x4 Psychiatric: normal mood/affect Skin: normal color, warm/dry Lymphatic: no adenopathy Progress Results/Orders Results/Orders Orders - NEYDA LANDEROS PAC Urinalysis, Cult If Indicated (07/20/25 09:35) Hcg, Ur Ql (07/20/25 09:35) Completed Orders - NEYDA LANDEROS PAC Cbc/Diff (07/20/25 09:35) BMP (07/20/25 09:35) Lipase (07/20/25 09:35) CMP (07/20/25 09:35) Vital Signs 07/20/25 07/20/25 07/20/25 09:31 09:45 09:45 Temp 98.2 98.2 Pulse 96 88 Resp 16 14 14 B/P (MAP) 132/70 114/73 (87) Pulse Ox 98 96 O2 Flow Rate 0 0 Laboratory Tests Test 07/20/25 09:53 White Blood Count 7.3 Red Blood Count 4.47 Hemoglobin 13.2 Hematocrit 39.9 Mean Corpuscular Volume 89.4 Mean Corpuscular Hemoglobin 29.5 Mean Corpuscular Hemoglobin Concent 33.0 Red Cell Distribution Width 13.0 Platelet Count 307 Mean Platelet Volume 9.4 Neutrophils (%) (Auto) 59.5 Lymphocytes (%) (Auto) 28.4 Monocytes (%) (Auto) 8.5 Eosinophils (%) (Auto) 3.0 Basophils (%) (Auto) 0.6 Neutrophils # (Auto) 4.4 Lymphocytes # (Auto) 2.1 Monocytes # (Auto) 0.6 Eosinophils # (Auto) 0.2 Basophils # (Auto) 0.0 CBC Comment Sodium Level 138 Potassium Level 3.3 L Chloride Level 102 Carbon Dioxide Level 27.7 Anion Gap 8 Blood Urea Nitrogen 11 Creatinine 0.71 Estimated GFR/1.73 m2 84 BUN/Creatinine Ratio 15.5 Glucose Level 72 Calcium Level 8.7 Total Bilirubin 0.9 Aspartate Amino Transf (AST/SGOT) 19 Alanine Aminotransferase (ALT/SGPT) 14 Alkaline Phosphatase 126 H Total Protein 8.3 H Albumin 3.5 Globulin 4.8 H Albumin/Globulin Ratio 0.7 L Lipase 47 Chemistry Comments Medical Decision Making Additional information obtaine: N/A Findings Examination and history consistent with acute lower abdominal pathology requiring laboratory screening, pain management and CT imaging to evaluate for acute surgical process. CT imaging consistent with acute diverticulitis without obvious perforation or abscess. Suboptimal use of contrast making CT imaging read difficult. Recommendations with the patient follow up with the primary care for colonoscopy consideration after resolution of diverticulitis. Additionally patient has a urinary tract infection. She received ceftriaxone in the emergency department along with Flagyl. She will be discharged with Cipro Flagyl which will cross cover her for UTI. Patient is discharged nontoxic well- appearing. Discharged additionally with the pain management. Strict aftercare instructions to return as needed. Differential Dx:Considerations: Bowel obstruction, Constipation, Diverticular disease, Gastritis/PUD, Gastroenteritis, Inflammatory BD, Ischemic bowel Departure Disposition: HOME / SELF CARE / HOMELESS Impression: Primary Impression: Diverticulitis Additional Impression: Acute urinary tract infection Condition: Improved Discharge Instructions: Diverticulitis, Urinary Tract Infection, Adult Additional Instructions: Please begin medication as directed and make follow up appointment with your Primary Care Doctor for referral for Colonoscopy. Thank you for visiting [facility] Emergency department. Referrals: NO PRIMARY CARE PROVIDER (PCP) Prescriptions Hydrocodone Bit/Acetaminophen 5/325 MG ([place] 5/325 MG) 5 Mg/325 Mg Tablet 1 TAB PO Q6H PRN for pain, #20 TAB Prov: NEYDA LANDEROS PAC 07/20/25 Metronidazole* (Flagyl*) 500 Mg Tablet 1 TABLET PO TID, #30 TABLET Prov: NEYDA LANDEROS 07/20/25 Ciprofloxacin HCl (Ciprofloxacin HCl) 500 Mg Tab 1 TAB PO BID, #20 TAB Prov: NEYDA LANDEROS 07/20/25 Amox Tr/Potassium Clavulanate 875/125 MG (Augmentin 875/125 MG) 875 Mg-125 Mg Tablet 1 TAB PO BID, #20 TAB Prov: NEYDA LANDEROS 07/20/25 Education Educated: Patient Educated regarding: diagnosis, treatment, prognosis, need for follow up Signature Scribe Signature: . Attestation: . NEYDA LANDEROS Jul 20, 2025 10:21
[2025-07-20] MEDS: ondansetron/PF 4mg/2ml inj IV ONE (10:50)
[2025-07-20] MEDS: morphine 4 MG/ML inj SYRINge IV ONE (10:51)
[2025-07-20] MEDS ORDERED: iohexol 300mg/ml 100ml inj. ONE (10:56)
[2025-07-20 11:46] LABS: LEUKOCYTE ESTERASE ,URINE MODERATE (Neg); NITRITES, URINE POSITIVE (Neg); OCCULT BLOOD,URINE SMALL (Neg)
[2025-07-20 11:47] LABS: URINE HCG NEGATIVE (NEG)
[2025-07-20 11:52] LABS: UA COLLECTION TYPE CLN CATCH MIDSTREAM
[2025-07-20 11:53] LABS: RENAL CELLS, URINE FEW /HPF; SQUAMOUS EPITHELIAL CELL,UR FEW /LPF (FEW)
--- NOTE | 2025-07-20 12:38 | RADIOLOGY REPORT ---
Indication: Lower abd pain Technique: CT axial images of the abdomen and pelvis are obtained without contrast. Coronal and sagittal reformats were obtained. Comparison: CT ABDOMEN PELVIS on DOS: 03/19/20 FINDINGS: There is limited interpretation of the abdomen and pelvis without administration of intravenous contrast. Lung bases demonstrate no pleural effusion. Adrenal glands, spleen and pancreas unremarkable in shape. Liver unremarkable in shape. No CT evidence for cholelithiasis. No hydronephrosis/nephrolithiasis. Stomach partially distended. Small bowel loops are moderately distended. Colonic diverticular disease. Bowel wall thickening with surrounding stranding involving the sigmoid colon. Normal appendix. Abdominal aortic atherosclerotic disease. Bladder partially distended. No inguinal lymphadenopathy. [id number]-[id number] bilateral sacroiliac degenerative joint disease. [id number]-[id number] thoracolumbar degenerative disc disease. Ggdv-kv-[id number] lumbar facet hypertrophic changes. IMPRESSION: Limited evaluation without contrast. Diverticulitis sigmoid colon. Recommend colonoscopy once acute symptoms resolve to exclude underlying colonic lesion. Other findings as described.
[2025-07-20] MEDS: CefTRIAXone/D5W-Rocephin 1gm 50 ML IV ONE (13:11)
[2025-07-20] MEDS: metroNIDAZOLE-Flagyl 500mg/NS 100 ML IV STA (13:26)
[2025-07-20] MEDS ORDERED: HYDR-3965 PO ×2 (15:39→15:42)
[2025-07-20] MEDS ORDERED: AMOX-580 PO (15:39)
[2025-07-20] MEDS ORDERED: CIPR-458 PO (15:39)
[2025-07-20] MEDS ORDERED: METR-159 PO (15:40)
[2025-07-20 15:47] VITALS: BP 131/65; PULSE 76; RESP 18; TEMP 97.8; O2SAT 98
== END 2025-07-20 15:54 | disposition home or self-care (01) ==
LOC: ER 09:22
DX: K57.32 Diverticulitis of large intestine without perforation or abscess without bleeding (principal); N39.0 Urinary tract infection, site not specified; J44.9 Chronic obstructive pulmonary disease, unspecified; G89.29 Other chronic pain; G43.909 Migraine, unspecified, not intractable, without status migrainosus; I50.9 Heart failure, unspecified; F41.9 Anxiety disorder, unspecified; F32.A Depression, unspecified; Z86.73 Personal history of transient ischemic attack (TIA), and cerebral infarction without residual deficits; Z90.710 Acquired absence of both cervix and uterus; Z79.899 Other long term (current) drug therapy
CPT/HCPCS: 36415; 74177; 80053; 81001; 81025; 83690; 85025; 87088; 87186; 96365; 96368; 96375; 99285; J0696; J2270; J2405; J3490; Q9967; 87077

== ENCOUNTER 2025-07-22 16:44 | Inpatient (IN) | payer MEDICAID ==
[~2025-07-22] VITALS: Ht 149.9 cm; Wt 60.5 kg
[~2025-07-22 16:44] MED LIST changes: +AMOX-580 PO; +CIPR-458 PO; +HYDR-3965 PO; +METR-159 PO
--- NOTE | 2025-07-22 17:19 | Physician Documentation ---
History of Present Illness ~ General Stated Complaint: ABD PAIN/VOMITING Time Seen by MD: 17:19 Primary Medical Doctor: [facility] Source: patient Mode of Arrival: POV Exam Limitations: no limitations History of Present Illness Initial Comments 59-year-old female was recently seen here 2 days ago diagnosed with UTI and diverticulitis was given antibiotics. Patient was told to come back if she was experiencing more pain and she states she is also experiencing some nausea and vomiting. Medication Reconciliation Allergies: Coded Allergies: No Known Allergies (Unverified , 07/22/25) Scheduled Albuterol Sulfate (Proventil Hfa), 2 PUFFS INH Q6H Amox Tr/Potassium Clavulanate 875/125 MG (Augmentin 875/125 MG), 1 TAB PO BID Ciprofloxacin HCl (Ciprofloxacin HCl), 1 TAB PO BID Diclofenac Sodium (Diclofenac Sodium), 1 APPLIC TOP Q6H Escitalopram Oxalate (Lexapro), 1 TABLET PO DAILY, (Reported) Estradiol (Estradiol), 1 TAB PO DAILY, (Reported) Metronidazole* (Flagyl*), 1 TABLET PO TID Ondansetron Hcl (Zofran), 1 TAB PO Q12H PRN Pantoprazole Sodium (PROTONIX tablet), 1 TABLET PO BID, (Reported) Psyllium Husk (with Sugar) (Metamucil Powder), 5 ML PO DAILY Scheduled PRN Cyclobenzaprine* (Cyclobenzaprine*), 1 TABLET PO Q6H PRN for muscle spasms, (Reported) Hydrocodone Bit/Acetaminophen 5/325 MG ([place] 5/325 MG), 1 TAB PO Q6H PRN for p ain Tramadol Hcl (Tramadol Hcl), 1 TABLET PO Q4H PRN for pain, (Reported) albuterol inhaler (Pro-Air Inhaler), 1-2 PUFFS PO Q4H PRN for SOB or wheezing Past Medical History Past Medical History: CVA/TIA/Stroke, Headache, Migraine, Diverticulitis, GERD, Chronic Back Pain, Anxiety, Depression Past Surgical History: hysterectomy Patient History: (CHF) Congestive heart failure FATHER, Onset:Unknown (COPD) Chronic obstructive lung disease FATHER, Onset:Unknown (CVA) Cerebrovascular accident MOTHER, Onset:60 years & older ([place]) Myocardial infarction FATHER, Onset:60 years & older Asthma MOTHER, Onset:Unknown Alcohol Use: Rarely Drug Use: none Lives with: Family Lives In: Home Review of Systems All Other Systems at this time: Reviewed and Negative Constitutional: Denies: chills, fever Gastrointestinal: Reports: abdominal pain Genitourinary: Reports: dysuria, flank pain Physical Exam Physical Exam Vital Signs: RN Vital Signs have been reviewed: Yes General Appearance: alert, WD/WN, mild distress Head: normal inspection Face: normal inspection Pupils/EOM/Fundus: PERRLA Respiratory: lungs clear Chest: no accessory muscle use Cardiovascular: normal peripheral pulses Back: CVA tenderness (R), CVA tenderness (L) Extremities: normal range of motion Motor / Sensory: no motor deficit, no sensory deficit Psychiatric: normal mood/affect Skin: normal color Progress Results/Orders Results/Orders Orders - NEYDA LANDEROS PAC Ciprofloxacin/D5w 200mg/100ml (Ciproflox (07/22/25 20:00) Urinalysis, Cult If Indicated (07/22/25 17:35) Page Hospitalist (07/22/25 18:45) Fill Out Med Reconciliation (07/22/25 18:45) Completed Orders - NEYDA LANDEROS PAC Cbc/Diff (07/22/25 17:19) CMP (07/22/25 17:19) Metronidazole-Flagyl 500mg/Ns (Flagyl 50 (07/22/25 17:19) Ondansetron Inj. (Zofran 4mg/2ml Vial) (07/22/25 17:20) Ceftriaxone/[id number] 1gm (Rocephin 1 (07/22/25 17:40) Morphine 4mg/Ml Inj. (Morphine Inj.) (07/22/25 18:55) Medications Received in ER Medications (Trade) Dose Ordered Sig/Cindi Route PRN Reason Start Time Stop Time Status Last Admin Dose Admin Metronidazole/ Sodium Chloride 100 ml @ 100 mls/hr ONCE STAT IV 07/22/25 17:19 07/22/25 18:18 DC 07/22/25 18:46 100 MLS/HR (Zofran 4mg/2ml vial) 4 mg ONCE ONCE IV 07/22/25 17:20 07/22/25 17:23 DC 07/22/25 18:42 4 MG Ceftriaxone Sodium 50 ml @ 100 mls/hr ONCE ONCE IV 07/22/25 17:40 07/22/25 18:09 DC 07/22/25 18:44 100 MLS/HR (morphine inj.) 4 mg ONCE ONCE IV 07/22/25 18:55 07/22/25 19:00 DC 07/22/25 19:05 4 MG Vital Signs 07/22/25 07/22/25 07/22/25 07/22/25 17:18 17:44 18:50 19:05 Temp 98.6 98.6 Pulse 76 65 Resp 18 12 12 B/P (MAP) 112/48 123/70 (87) Pulse Ox 97 99 O2 Flow Rate 0 0 Laboratory Tests Test 07/22/25 18:26 White Blood Count 7.7 Red Blood Count 3.80 L Hemoglobin 11.7 L Hematocrit 33.7 L Mean Corpuscular Volume 88.8 Mean Corpuscular Hemoglobin 30.8 Mean Corpuscular Hemoglobin Concent 34.7 Red Cell Distribution Width 13.0 Platelet Count 302 Mean Platelet Volume 10.1 Neutrophils (%) (Auto) 79.1 H Lymphocytes (%) (Auto) 13.5 L Monocytes (%) (Auto) 5.3 Eosinophils (%) (Auto) 1.5 Basophils (%) (Auto) 0.6 Neutrophils # (Auto) 6.1 Lymphocytes # (Auto) 1.0 L Monocytes # (Auto) 0.4 Eosinophils # (Auto) 0.1 Basophils # (Auto) 0.0 CBC Comment Sodium Level 139 Potassium Level 3.2 L Chloride Level 102 Carbon Dioxide Level 28.1 Anion Gap 9 Blood Urea Nitrogen 15 Creatinine 0.64 Estimated GFR/1.73 m2 > 90 BUN/Creatinine Ratio 23.4 H Glucose Level 105 H Calcium Level 7.9 L Total Bilirubin 0.6 Aspartate Amino Transf (AST/SGOT) 19 Alanine Aminotransferase (ALT/SGPT) 12 Alkaline Phosphatase 102 Total Protein 8.0 Albumin 3.3 L Globulin 4.7 H Albumin/Globulin Ratio 0.7 L Chemistry Comments Medical Decision Making Additional information obtaine: old records Findings Patient returns to the emergency department having failed outpatient antibiotics for uncomplicated diverticulitis with UTI. Patient to have repeated screening labs receive IV antibiotics of Cipro and Flagyl. Additionally we will provide her a ceftriaxone as her urinalysis culture shows Cipro being intermediate bed one regarding resistance. Patient will be placed in room 14 and I will be consulting with the hospitalist for admission. No need for repeating CT imaging. Differential Diagnosis Differential diagnosis include but not limited to acute diverticulitis through failed outpatient antibiotics, UTI, Pyelonephritis, of the surgical abdominal unforeseen in the Emergencies. Discussed case with the hospitalist. No leukocytosis. Patient is reassessed several times and resting comfortably. She is awaiting transport to inpatient floor. Departure Disposition: ADMITTED INPATIENT Admitted to Inpatient Unit: to hospitalist Impression: Primary Impression: Complicated UTI (urinary tract infection) Additional Impression: Diverticulitis Referrals: NO PRIMARY CARE PROVIDER (PCP) Signature Scribe Signature: . Attestation: . GURU FLOWERS NP Jul 22, 2025 17:19 NEYDA LANDEROS PAC Jul 22, 2025 17:39
[2025-07-22] MEDS: ondansetron/PF 4mg/2ml inj IV ONE (18:42)
[2025-07-22] MEDS: CefTRIAXone/D5W-Rocephin 1gm 50 ML IV ONE (18:44)
[2025-07-22] MEDS: metroNIDAZOLE-Flagyl 500mg/NS 100 ML IV STA (18:46)
[2025-07-22 18:53] LABS: MEAN PLATELET VOLUME 10.1 FL (7.4-10.4); RED CELL DISTRIBUTION WIDTH 13.0 % (11.5-14.5)
[2025-07-22] MEDS: morphine 4 MG/ML inj SYRINge IV ONE (19:05)
[2025-07-22 19:16] LABS: CREATININE 0.64 MG/DL (0.40-0.90); TOTAL CARBON DIOXIDE 28.1 MMOL/L (24-32); eCRCL 63 ML/MIN; eGFR > 90 ML/MIN
[2025-07-22 20:10] LABS: LEUKOCYTE ESTERASE ,URINE NEGATIVE (Neg); NITRITES, URINE NEGATIVE (Neg); OCCULT BLOOD,URINE NEGATIVE (Neg)
[2025-07-22 20:11] LABS: UA COLLECTION TYPE NON-SPECIFIED
--- NOTE | 2025-07-22 20:19 | HISTORY AND PHYSICAL-Residence ---
History & Physical Providers to CC Resident Creating Document: HELENJUNE ORTEGA, RES ~ History of Present Illness Primary Medical Doctor: [facility] Reason for Admit\Complaint: UTI History of Present Illness This is a 59-year-old female who presented to the ED with chief complaints of lower abdominal pain. Patient was here 2 days ago with complaints of abdominal pain, imaging was done and she was found to have UTI and diverticulitis, for which she was prescribed oral antibiotics ciprofloxacin and Flagyl and was sent home. Again today since this morning patient patient started complaining of lower abdominal pain that was radiating to the right flank, 7/10 in intensity associated with nausea and vomiting. Patient also reports having chills but no fevers. Patient says that she has been having repeated episodes of UTI, at least 2 per month for the last 1 year, and would take urostat whenever she had symptoms of UTI, which would result in resolution of her symptoms. Patient recently started seeing her PCP in [facility]. Reports that her PCP will be referring her to a urologist soon. Patient also reports that she has been eating very less since the last 1 week due to constant nausea. Patient denies any other urinary symptoms currently like burning micturition, increased frequency, urgency, foul-smelling urine, or blood in urine. Patient completed 2 full days of her antibiotic course ciprofloxacin and Flagyl. Allergies: Coded Allergies: No Known Allergies (Unverified , 07/22/25) Home Medications Home Medications Active [place] 5/325 MG (Acetaminophen/Hydrocodone Bitart) 5 Mg/325 Mg Tablet 1 Tab PO Q6H PRN Flagyl* (Metronidazole) 500 Mg Tablet 1 Tablet PO TID Ciprofloxacin HCl (Ciprofloxacin) 500 Mg Tab 1 Tab PO BID Augmentin 875/125 MG (Amoxicillin/Clavulanate Potassium) 875 Mg-125 Mg Tablet 1 Tab PO BID Metamucil Powder (Psyllium Husk (with Sugar)) 575 Gm Powder 5 Ml PO DAILY 30 Days Proventil Hfa (Albuterol Sulfate) 6.7 Gm Hfa.aer.ad 2 Puffs INH Q6H Diclofenac Sodium 100 Gm Gel..gram. 1 Applic TOP Q6H 21 Days Zofran (Ondansetron Hcl) 4 Mg Tablet 1 Tab PO Q12H PRN 5 Days Pro-Air Inhaler (Albuterol) 8.5 Gm Inhaler 1-2 Puffs PO Q4H PRN Reported Lexapro (Escitalopram Oxalate) 10 Mg Tablet 1 Tablet PO DAILY PROTONIX tablet (Pantoprazole Sodium) 40 Mg Tablet.dr 1 Tablet PO BID Estradiol 1 Mg Tablet 1 Tab PO DAILY Cyclobenzaprine* (Cyclobenzaprine HCl) 10 Mg Tablet 1 Tablet PO Q6H PRN Tramadol Hcl (Tramadol HCl) 50 Mg Tablet 1 Tablet PO Q4H PRN Past Medical History Past Medical History TIA 7 years ago Frequent UTIs No other significant medical history Past Surgical History Surgical History Comment Hysterectomy that was done in 2015 due to complaints of excessive bleeding. Family History Family History: (CHF) Congestive heart failure FATHER, Onset:Unknown (COPD) Chronic obstructive lung disease FATHER, Onset:Unknown (CVA) Cerebrovascular accident MOTHER, Onset:60 years & older ([place]) Myocardial infarction FATHER, Onset:60 years & older Asthma MOTHER, Onset:Unknown Past Social History Social History Comment Patient started smoking when she was 21 years, stopped 3 years ago, would smoke 1 and half pack per day. Drinks alcohol socially No illicit drug use Lives at home with her Alcohol Use: Rarely Drug Use: None Lives with: Family Lives In: Home ROS All Other Systems: Reviewed and Negative ROS Constitutional: Denies: no symptoms reported, Eyes: Denies: no symptoms reported ENT: Denies: no symptoms reported Respiratory: Denies: no symptoms reporteD Cardiovascular: Denies: no symptoms reported Gastrointestinal: Denies: Reports nausea, lower abdominal pain Genitourinary: Denies: no symptoms reported Female Genitalia: Denies: no reported symptoms Neurological: Denies: no symptoms reported Musculoskeletal: Denies: no symptoms reported Endocrine: Denies: no symptoms reported Constitutional: Denies: chills, fever Gastrointestinal: Reports: abdominal pain Genitourinary: Reports: dysuria, flank pain Exam Vitals: Vital Signs Date Time Temp Pulse Resp B/P (MAP) Pulse Ox O2 Delivery O2 Flow Rate FiO2 07/22/25 19:05 12 07/22/25 18:50 98.6 65 123/70 (87) 99 0 General: General: Awake, alert, oriented HEENT: Conjunctive are pink, sclerae clear, no icterus, Neck: Supple, no JVD, no lymphadenopathy and thyromegaly. Chest: Equal air entry on both lungs, no added sounds, no wheeze. Cardiovascular: S1-S2 heard no gallops, no rubs, no murmurs Abdomen: soft, tenderness present in the lower abdominal area, no guarding, no rigidity Extremities: No edema, no cyanosis, peripheral pulsations intact Central Nervous System: No focal neurological deficits Musculoskeletal: No joint swelling, deformities, inflammations, and no scoliosis and back tenderness Skin: Warm and dry. Diagnostic Data Last Recorded Lab Results: 07/22/25182507/22/251825 Advance Care Planning Advanced Care plannin - 30 Minutes (Full code) Additional Plan Possible acute pyelonephritis Acute lower abdominal and right flank pain UTI Patient currently not meeting SIRS criteria Vitals stable WBC count normal CT abdomen pelvis done on shows No evidence of hydronephrosis/nephrolithiasis Patient currently on fluids NS 100 cc/hour Started the patient on ceftriaxone. Sensitivity showed patient is intermediate sensitive to ciprofloxacin, hence starting her on ceftriaxone to which she is sensitive. Mild hypokalemia- K-3.2 Patient on potassium replacement protocol. Possible diverticulosis- CT scan done on a 24 shows Diverticulitis of sigmoid colon without evidence of abscess or rupture Patient denies any complaints of left lower quadrant tenderness or pain, no diarrhea, no bloody stools. Code status: Full code DVT profile: Heparin Diet: Regular diet June Devine PGY-1 Patient assessed and plan was discussed with resident, agree with the H and P and assessment and plan above with no changes. Alessandra Conteh MD Critical Care Date of Service: Jul 22, 2025 Billing Provider: ALESSANDRA CONTEH MD,JUNE, RES Jul 22, 2025 20:19 ALESSANDRA CONTEH MD Jul 23, 2025 16:35
[2025-07-22] MEDS ORDERED: magnesium Cl slow-release 64mg tablet PO PRN (20:40)
[2025-07-22] MEDS ORDERED: magnesium sulf-water 2g/50mL 50 ML IV PRN (20:40)
[2025-07-22] MEDS ORDERED: potassium Cl 20 mEq SR tablet PO PRN (20:40)
[2025-07-22] MEDS ORDERED: potassium Cl 40MEQ/1/2NS 520ml 520 ML IV PRN (20:40)
[2025-07-22] MEDS ORDERED: magnesium sulf-water 4G/100mL 100 ML IV PRN (20:40)
[2025-07-22] MEDS: ciprofloxacin/D5W 200mg/100mL 100 ML IV SCH (20:42)
[2025-07-22] MEDS ORDERED: BUPR300T53 PO (21:07)
[2025-07-22] MEDS ORDERED: SERT25TA PO (21:07)
[2025-07-22] MEDS ORDERED: ASPI81TA52 PO (21:07)
[2025-07-22] MEDS ORDERED: BUPR100T13 PO (21:07)
[2025-07-22] MEDS: potassium Cl 20 mEq SR tablet PO PRN (21:15)
[2025-07-22 21:29] VITALS: BP 113/66; PULSE 61; RESP 12; TEMP 98.2; O2SAT 99
[2025-07-22] MEDS: normal saline 1000ml 1,000 ML IV SCH (21:47)
[2025-07-23] VITALS (8 sets, daily range): BP systolic 110–135; BP diastolic 63–84; PULSE 68–87; RESP 12–17; TEMP 97.4–98.3; O2SAT 95–99
[2025-07-23] MEDS: HYDROcodone/acetaminophen 5mg/325mg tablet PO PRN (04:09)
[2025-07-23 06:13] LABS: MEAN PLATELET VOLUME 9.9 FL (7.4-10.4); RED CELL DISTRIBUTION WIDTH 12.8 % (11.5-14.5)
[2025-07-23 06:25] LABS: CHOL/HDL RATIO 2.3 (0.00-4.99); CREATININE 0.61 MG/DL (0.40-0.90); LDL CHOLESTEROL 50 MG/DL (50-100); TOTAL CARBON DIOXIDE 28.8 MMOL/L (24-32); eCRCL 66 ML/MIN; eGFR > 90 ML/MIN
[2025-07-23] MEDS: K and/or MAG REPLACEMENT MC SCH (06:55)
[2025-07-23] MEDS: heparin, porcine 5000 units/ml vial SQ SCH (07:47)
[2025-07-23] MEDS: docusate sod 100mg capsule PO SCH (07:48)
[2025-07-23] MEDS: CefTRIAXone/D5W-Rocephin 1gm 50 ML IV SCH (07:48)
--- NOTE | 2025-07-23 10:05 | PROGRESS NOTE ---
Daily Progress Note Providers to CC ~ Antibiotic Timeout Antibiotic Ordered?: Yes Subjective No new complaints, patient is seen resting comfortably. Objective Vital Signs Date Time Temp Pulse Resp B/P (MAP) Pulse Ox O2 Delivery O2 Flow Rate FiO2 07/23/25 07:01 97.4 68 16 115/73 (87) 95 Room Air 07/22/25 20:47 0 Result Diagram: 07/23/2552107/23/25521 Gen. awake alert oriented asymptomatic HEENT: Normocephalic, atraumatic, pupils round reactive to light , extraocular movements are intact, sclera anicteric, conjunctiva pinkish, moist oral mucosa, no rash or ulcers. NECK: Supple, no JVD, trachea midline. CHEST: Clear to auscultation, no wheezes crackles or rhonchi. HEART: Regular rate rhythm, no murmur gallop or rub. ABDOMEN: Soft, tender to palpate , no organomegaly. EXTREMITIES: No cyanosis clubbing or edema. NEURO EXAM: Grossly nonfocal. MUSCULOSKELETAL : No joint swelling or deformities. SKIN: No rash or ulcers noted. Other Results Medications reviewed Problem\Assessment\Plan 59-year-old female who presented to the ED with chief complaints of lower abdominal pain. # acute pyelonephritis: Continue IV antibiotics. # hypokalemia: Replace per protocol # GERD/GI prophylaxis: Continue Protonix Lb sign depression: Continue Wellbutrin and Zoloft #DVT prophylaxis: SCDs and early ambulation #CODE STATUS: Full code. Date of Service: Jul 23, 2025 Billing Provider: DHARMESH DELAROSA MD Common Visit Codes: [id number] INP/OBS CARE(HIGH) DHARMESH DELAROSA MD Jul 23, 2025 10:05
[2025-07-23] MEDS: FLU VACC TS2025-26(6MOS UP)/PF (FLULAVAL) 45 MCG/0.5 ML SYRINGE IMVAC ONE (12:16)
[2025-07-23] MEDS: haloperidol lactate 5mg/ml inj IM ONE (21:55)
[2025-07-23] MEDS: HYDROcodone/acetaminophen 10/325mg tab PO PRN (23:51)
[2025-07-24] VITALS (8 sets, daily range): BP systolic 115–140; BP diastolic 69–84; PULSE 75–90; RESP 13–20; TEMP 97.2–97.9; O2SAT 96–97
[2025-07-24 06:18] LABS: MEAN PLATELET VOLUME 9.5 FL (7.4-10.4); RED CELL DISTRIBUTION WIDTH 12.4 % (11.5-14.5)
[2025-07-24 06:24] LABS: CREATININE 0.81 MG/DL (0.40-0.90); TOTAL CARBON DIOXIDE 29.4 MMOL/L (24-32); eCRCL 50 ML/MIN; eGFR 72 ML/MIN
[2025-07-24] MEDS: metroNIDAZOLE-Flagyl 500mg/NS 100 ML IV SCH (13:31)
[2025-07-24] MEDS: magnesium hydroxide 30ml (MOM) UD suspension PO PRN (13:31)
--- NOTE | 2025-07-24 14:36 | PROGRESS NOTE ---
Daily Progress Note Providers to CC ~ Antibiotic Timeout Antibiotic Ordered?: Yes Subjective Patient states she had a rough night. Further reports she has not had a bowel movement for seven days. Complains of lower abdominal pain. Has been at bedside who visibly appears upset because patient isn't getting better soon enough. Objective Vital Signs Date Time Temp Pulse Resp B/P (MAP) Pulse Ox O2 Delivery O2 Flow Rate FiO2 07/24/25 14:07 20 07/24/25 06:30 80 07/24/25 02:00 97.6 130/84 (99) 97 Room Air 07/22/25 20:47 0 Result Diagram: 07/24/25 0543 07/24/25 0543 Gen. awake alert oriented asymptomatic HEENT: Normocephalic, atraumatic, pupils round reactive to light , extraocular movements are intact, sclera anicteric, conjunctiva pinkish, moist oral mucosa, no rash or ulcers. NECK: Supple, no JVD, trachea midline. CHEST: Clear to auscultation, no wheezes crackles or rhonchi. HEART: Regular rate rhythm, no murmur gallop or rub. ABDOMEN: Soft, tender to palpate in the lower abdomen, no organomegaly. EXTREMITIES: No cyanosis clubbing or edema. NEURO EXAM: Grossly nonfocal. MUSCULOSKELETAL : No joint swelling or deformities. SKIN: No rash or ulcers noted. Other Results Medications reviewed Problem\Assessment\Plan 59-year-old female who presented to the ED with chief complaints of lower abdominal pain. # acute diverticulitis: Continue IV antibiotics. Patient is on IV Rocephin. We will add IV Zithromax. Pyelonephritis is ruled out. # hypokalemia: Replace per protocol # nausea: Reglan PRN. Patient not having much relief with IV Zofran. # constipation: Patient reports she has not had a bowel movement for seven days. We will start on bowel care protocol. # GERD/GI prophylaxis: Continue Protonix # depression: Continue Wellbutrin and Zoloft #DVT prophylaxis: SCDs and early ambulation #CODE STATUS: Full code. Date of Service: Jul 24, 2025 Billing Provider: DHARMESH DELAROSA MD Common Visit Codes: [id number] INP/OBS CARE(HIGH) DHARMESH DELAROSA MD Jul 24, 2025 14:36
[2025-07-24] MEDS ORDERED: metroNIDAZOLE-Flagyl 500mg/NS 100 ML IV SCH (16:00)
[2025-07-24] MEDS: metoclopramide 5 mg/ml inj IV ONE (17:16)
[2025-07-25] VITALS (8 sets, daily range): BP systolic 107–133; BP diastolic 61–78; PULSE 77–91; RESP 12–24; TEMP 97–99.7; O2SAT 95–99
[2025-07-25 07:06] LABS: MEAN PLATELET VOLUME 9.6 FL (7.4-10.4); RED CELL DISTRIBUTION WIDTH 12.9 % (11.5-14.5)
[2025-07-25 07:15] LABS: CREATININE 0.69 MG/DL (0.40-0.90); TOTAL CARBON DIOXIDE 28.2 MMOL/L (24-32); eCRCL 58 ML/MIN; eGFR 86 ML/MIN
[2025-07-25] MEDS ORDERED: morphine 4 MG/ML inj SYRINge IV PRN (08:55)
--- NOTE | 2025-07-25 14:31 | PROGRESS NOTE ---
Daily Progress Note Providers to CC ~ Antibiotic Timeout Antibiotic Ordered?: Yes Subjective Continues to have pain in the lower abdomen , has had a small BM and requesting an enema Objective Vital Signs Date Time Temp Pulse Resp B/P (MAP) Pulse Ox O2 Delivery O2 Flow Rate FiO2 07/25/25 10:14 17 07/25/25 06:00 80 07/25/25 02:00 97.0 123/63 (83) 98 Room Air 07/22/25 20:47 0 Result Diagram: 07/25/25 0646 07/25/2546 Gen. awake alert oriented asymptomatic HEENT: Normocephalic, atraumatic, pupils round reactive to light , extraocular movements are intact, sclera anicteric, conjunctiva pinkish, moist oral mucosa, no rash or ulcers. NECK: Supple, no JVD, trachea midline. CHEST: Clear to auscultation, no wheezes crackles or rhonchi. HEART: Regular rate rhythm, no murmur gallop or rub. ABDOMEN: Soft, tender to palpate in the lower abdomen, no organomegaly. EXTREMITIES: No cyanosis clubbing or edema. NEURO EXAM: Grossly nonfocal. MUSCULOSKELETAL : No joint swelling or deformities. SKIN: No rash or ulcers noted. Other Results Medications reviewed Problem\Assessment\Plan 59-year-old female who presented to the ED with chief complaints of lower abdominal pain. # acute diverticulitis: Continue IV antibiotics. Patient is on IV Rocephin. Added IV Flagyl. Patient continues to have lower abdominal pain. We will check a CT of the abdomen and pelvis with contrast. Pyelonephritis is ruled out. # hypokalemia: Replace per protocol # nausea: Reglan PRN. Patient not having much relief with IV Zofran. # constipation: Patient reports she has not had a bowel movement for seven days. Started on bowel care protocol. Enema PRN daily. # GERD/GI prophylaxis: Continue Protonix # depression: Continue Wellbutrin and Zoloft #DVT prophylaxis: SCDs and early ambulation #CODE STATUS: Full code. Date of Service: Jul 25, 2025 Billing Provider: DHARMESH DELAROSA MD Common Visit Codes: [id number] INP/OBS CARE(HIGH) DHARMESH DELAROSA MD Jul 25, 2025 14:31
[2025-07-25] MEDS: mag hydrox/Alum hydrox/simeth 30ml oral suspension PO PRN (14:59)
[2025-07-25] MEDS: mineral oil 133ml enema RC PRN (15:01)
--- NOTE | 2025-07-25 16:41 | RADIOLOGY REPORT ---
Indication: ABDOMINAL PAIN Technique: CT axial images of the abdomen and pelvis are obtained with intravenous contrast per angiogram protocol. Coronal and sagittal reformats were obtained. Radiation Dose Information: CTDI volume is 16.4 mGy. Dose-length product is 811 mGy*cm Comparison: CT CT ABDOMEN PELVIS W/ IV CONTRAST on DOS: 07/20/25, CT ABDOMEN PELVIS on DOS: 03/19/20 FINDINGS: Abdominal aortic atherosclerotic calcification disease. Splenic artery directly arises from the aorta. Celiac, SMA patent. Bilateral renal arteries patent. Inferior mesenteric artery patent. No evidence for abdominal aortic aneurysmal dilatation/dissection. OSVALDO patent. The common and external iliac arteries demonstrate no high-grade stenoses. Lung bases demonstrate no pleural effusion Adrenal glands, Spleen, pancreas unremarkable. No enhancing hepatic lesion. No CT evidence for cholelithiasis. Kidneys demonstrate no hydronephrosis. Stomach is partially distended. Small bowel loops are normal in caliber. Colonic diverticular disease. Stranding surrounding the sigmoid colon diverticula overall decreased from prior examination. Moderate volume stool in the colon. Normal appendix. Bladder partially distended. No free pelvic fluid. No inguinal lymphadenopathy. [id number] thoracolumbar degenerative disc disease and facet hypertrophic changes. IMPRESSION: Diverticulitis of the sigmoid colon which overall appears less pronounced than on previous examination. Aortic atherosclerotic calcification disease. No evidence for high-grade stenosis or mesenteric occlusion. Other findings as described. Recommend colonoscopy once acute tendon interval to exclude a underlying sigmoid colon lesion.
[2025-07-25] MEDS: morphine 4 MG/ML inj SYRINge IV PRN (16:50)
[2025-07-26] VITALS (12 sets, daily range): BP systolic 99–159; BP diastolic 55–98; PULSE 61–82; RESP 12–17; TEMP 97.3–98.7; O2SAT 94–99
[2025-07-26 06:30] LABS: MEAN PLATELET VOLUME 9.4 FL (7.4-10.4); RED CELL DISTRIBUTION WIDTH 13.0 % (11.5-14.5)
[2025-07-26 06:48] LABS: CREATININE 0.54 MG/DL (0.40-0.90); TOTAL CARBON DIOXIDE 26.6 MMOL/L (24-32); eCRCL 75 ML/MIN; eGFR > 90 ML/MIN
[2025-07-26] MEDS: pantoprazole 40mg Tablet.DR PO SCH (15:42)
--- NOTE | 2025-07-26 18:36 | PROGRESS NOTE- Residence ---
Progress Note - Resident Providers to CC Resident Creating Document: KERI SIGALA, TRAVIS ~ Central Line/PICC still needed: N\A Tay-Non Protocol Tay Indications Met/Not Met: F/C Indications Not Met Antibiotic Timeout Antibiotic Ordered?: Yes Subjective Patient was examined bedside. She complains of diffuse abdominal pain, more in the lower quadrant. She used to be in his dull aching, intermittent, radiating to flank, 7/10, well controlled with medication. She complains of pain the abdomen right after eating food, which has caused her to significantly reduce consumption. There has been a with liquid diet and hence she has been transitioned to full liquid diet. She had 1 bowel movement today after the enema. Objective Vital Signs Date Time Temp Pulse Resp B/P (MAP) Pulse Ox O2 Delivery O2 Flow Rate FiO2 07/26/25 15:00 97.7 82 12 125/55 (78) 94 Room Air 07/25/25 20:00 0.0 Result Diagram: 07/26/25 0559 07/26/25 0559 General: Well alert, well oriented, not confused, not agitated, not in acute distress, well cooperated during the physical. HEENT: Conjunctive are pink, sclerae clear, no icterus, pupil is equal in both sides, reactive to light, no ear discharge, no pharyngeal erythema or an edema. Neck: Supple, no JVD, no lymphadenopathy and thyromegaly. Chest: Equal air entry on both lungs, no added sounds, no wheeze. Cardiovascular: S1-S2 regular sinus rhythm and, regular rate, no gallops, no rubs, no murmurs Abdomen: Soft, nondistended, tenderness on superficial palpation in epigastric, and in right and left lower quadrant. no guarding, no rigidity Extremities: No obvious deformities, no pitting edema bilaterally, capillary refill intact, peripheral pulsations are intact on both sides Central Nervous System: No focal neurological deficits, no motor or sensory weakness in all 4 extremities, could move all 4 extremities, 2+ deep tendon reflexes, negative Babinski. Musculoskeletal: No joint swelling, deformities, inflammations, and no scoliosis and back tenderness Skin: Warm and dry. Counseling Services Smoking & Tobacco Cessation: N/A Advance Care Planning Advanced Care planning: N/A Assessment Assessment This is a 59-year-old female with past medical history of recurrent UTI and diverticulitis who presented to the ED with complaints of UTI and diverticulitis. She underwent CTA of the abdomen pelvis which showed resolving diverticulitis with no cholecystitis or water purifier. She also complained of constipation for 1 week which is resolving with daily enema. She is currently being treated with IV antibiotics. She will need outpatient urology and gastroenterology consultation for her recurrent UTI and diverticulitis. Plan Plan Acute pyelonephritis, complicated recurrent UTI. Currently asymptomatic, vitals stable CBC normal with no leukocytosis, no reason inflammatory markers Urine culture on 07/20/2025 showed E coli resistant to cefazolin and Bactrim. Continue antibiotic ceftriaxone 1 g IV daily and metronidazole 500 mg IV q.12h, day 5. Continue hydration with normal saline at 100 mL/hour. Imaging shows no signs of nephrolithiasis. Negative blood culture after 3 days of growth Recommended Outpatient consideration with the urologist in view of recurrent UTI. Recurrent diverticulitis Last episode 3 years ago, last colonoscopy 4 years ago. Complaining of diffuse abdominal pain, epigastric pain after eating. CBC were normal with no leukocytosis, Continue antibiotic ceftriaxone 1 g IV daily remission with a 500 mg IV q.12h, D5. Protonix 40 mg p.o. b.i.d. Stopped Ciprofloxacin CTA of abdomen pelvis shows diverticulitis improving from previous CT. No evidence of abscess or impending perforation Symptoms not improving with antibiotics, surgery, Dr. Figueroa consulted. Advised for CT with overnight prep of oral contrast. On full liquid diet. Code status: Full code DVT prophylaxis: SCDs Analgesia/sedation: Morphine/[place]/tube: PIV GI prophylaxis: None Nutrition: Full liquid PT: Ordered. Prognosis: Guarded Disposition: NPO from midnight, CT with overnight oral contrast Keri Sigala MD PGY1, Internal Medicine [facility] Date of Service: Jul 26, 2025 Billing Provider: LURDES ROJAS MD Common Visit Codes: [id number] INP/OBS CARE(HIGH) KERI SIGALA, RES Jul 26, 2025 18:36 LURDES ROJAS MD Jul 27, 2025 06:26
[2025-07-26] MEDS: metroNIDAZOLE-Flagyl 500mg/NS 100 ML IV SCH (19:47)
[2025-07-26] MEDS: buPROPion 100mg tablet PO SCH (19:49)
[2025-07-26] MEDS: diatr meglu/diatrizoate 30ml oral sol.-(3 dose) bottle PO SCH (20:54)
[2025-07-27] VITALS (10 sets, daily range): BP systolic 97–128; BP diastolic 62–76; PULSE 55–108; RESP 12–21; TEMP 98.1–99.9; O2SAT 92–99
[2025-07-27] MEDS: ondansetron/PF 4mg/2ml inj IV PRN (01:42)
[2025-07-27 06:30] LABS: MEAN PLATELET VOLUME 9.1 FL (7.4-10.4); RED CELL DISTRIBUTION WIDTH 12.8 % (11.5-14.5)
[2025-07-27 06:45] LABS: CREATININE 0.64 MG/DL (0.40-0.90); TOTAL CARBON DIOXIDE 26.7 MMOL/L (24-32); eCRCL 63 ML/MIN; eGFR > 90 ML/MIN
[2025-07-27] MEDS: CefTRIAXone/D5W-Rocephin 1gm 50 ML IV SCH (07:05)
[2025-07-27] MEDS ORDERED: buPROPion SR 150mg tablet PO SCH (08:00)
[2025-07-27] MEDS: aspirin 81mg, enteric-coated 1 TAB TABLET.DR PO SCH (08:39)
--- NOTE | 2025-07-27 12:42 | RADIOLOGY REPORT ---
Exam: CT CT ABDOMEN PELVIS W/ ORAL CONTRAST History: Abdominal pain. Comparison Study: CT CTA ABDOMEN PELVIS on DOS: 07/25/25, CT CT ABDOMEN PELVIS W/ IV CONTRAST on DOS: 07/20/25. Technique: Multidetector spiral CT of the abdomen and pelvis was performed from lung bases to pubic symphysis. Imaging was performed without intravenous contrast. Coronal and sagittal multiplanar reformats were obtained from the axial data set by the technologist. Radiation Dose : 1. Abdomen/Pelvis: CTDIvol 15.4 mGy, DLP 729.1 mGy*cm. Findings: Evaluation of vasculature and solid organs is limited due to lack of intravenous contrast use. Lung Bases: Lung bases are clear. Visualized portions of the heart and pericardium are unremarkable. Liver: The liver is normal in size. No focal lesions. Gallbladder and Biliary Tree: The gallbladder is unremarkable No intrahepatic or extrahepatic biliary ductal dilatation. Spleen: Unremarkable Pancreas: The pancreas is grossly unremarkable. Adrenal Glands: Unremarkable Kidneys: Nonobstructing right distal ureteral calculi measuring 2 and 3 mm. No hydronephrosis. Left kidney is unremarkable. GI tract: There is enteric contrast in the stomach. No gastric abnormality. There are mildly distended small bowel loops measuring up to 2.8 cm which contain enteric contrast. Enteric contrast is also seen throughout the course of the colon down to the rectosigmoid junction. There is sigmoid diverti culosis. There is minimal mucosal thickening of the sigmoid colon adjacent fat stranding. Appendix is normal in caliber without acute appendicitis. Peritoneum/mesentery/retroperitoneum. No evidence of free intraperitoneal air. No ascites. No evidence of suspicious lymphadenopathy. Abdominal Wall: Unremarkable. Vasculature: The visualized abdominal aorta is normal in size and caliber. Evaluation of abdominal and pelvic vessels is limited due to lack of intravenous contrast. There are atherosclerotic calcifications in the aorta. Urinary Bladder: Grossly unremarkable for degree of distention. Pelvic Organs: Hysterectomy Musculoskeletal: No aggressive focal bony lesions, acute fractures or dislocation. IMPRESSION: 1. Mildly distended small bowel loops measuring up to 2.8 cm which contain enteric contrast. Enteric contrast is also seen throughout the course of the colon down to the rectosigmoid junction. Findings may represent ileus. No transition point to suggest mechanical obstruction. 2. Sigmoid diverticulosis with minimal mucosal thickening and adjacent fat stranding may reflect ongoing diverticulitis. Findings may represent early diverticulitis. No fluid collection or pneumoperitoneum. 3. Nonobstructive RIGHT distal ureteral calculi.
[2025-07-27] MEDS: HYDROmorphone inj. 0.5 MG/0.5 ML DISP.SYRIN IV PRN (13:15)
--- NOTE | 2025-07-27 16:14 | PROGRESS NOTE- Residence ---
Progress Note - Resident Providers to CC Resident Creating Document: KERI SIGALA, TRAVIS ~ Central Line/PICC still needed: N\A Tya-Non Protocol Tay Indications Met/Not Met: F/C Indications Not Met Antibiotic Timeout Antibiotic Ordered?: Yes Subjective Patient was examined bedside. She complains of diffuse abdominal pain, more in the lower quadrant unchanged from yesterday. She describes it has dull aching, intermittent, radiating to flank, 7/10, well controlled with medication. She complains of pain the abdomen right after eating food, which has caused her to significantly reduce consumption although she does better with liquid diet, 820- 30% of her plate. She also complains of abdominal pain with bowel and bladder movements. Objective Vital Signs Date Time Temp Pulse Resp B/P (MAP) Pulse Ox O2 Delivery O2 Flow Rate FiO2 07/27/25 14:15 16 07/27/25 11:00 98.1 82 128/63 (84) 97 Room Air 07/26/25 20:00 0.0 Result Diagram: 07/27/25 0607/27/25 06 General: Well alert, well oriented, not confused, not agitated, not in acute distress, well cooperated during the physical. HEENT: Conjunctive are pink, sclerae clear, no icterus, pupil is equal in both sides, reactive to light, no ear discharge, no pharyngeal erythema or an edema. Neck: Supple, no JVD, no lymphadenopathy and thyromegaly. Chest: Equal air entry on both lungs, no added sounds, no wheeze. Cardiovascular: S1-S2 regular sinus rhythm and, regular rate, no gallops, no rubs, no murmurs Abdomen: Soft, nondistended, tenderness on superficial palpation in epigastric, and in right and left lower quadrant. no guarding, no rigidity Extremities: No obvious deformities, no pitting edema bilaterally, capillary refill intact, peripheral pulsations are intact on both sides Central Nervous System: No focal neurological deficits, no motor or sensory weakness in all 4 extremities, could move all 4 extremities, 2+ deep tendon reflexes, negative Babinski. Musculoskeletal: No joint swelling, deformities, inflammations, and no scoliosis and back tenderness Skin: Warm and dry. Assessment Assessment This is a 59-year-old female with past medical history of recurrent UTI and diverticulitis who presented to the ED with complaints of UTI and diverticulitis. She underwent CTA of the abdomen pelvis which showed resolving diverticulitis with no cholecystitis. She is currently being treated with IV antibiotics for UTI and diverticulitis. Although her lab work and imaging shows improvement, the patient mentions no change in his symptoms with constant abdominal pain when she eats and uses the bathroom. Plan Plan Acute pyelonephritis, complicated recurrent UTI. Bilateral lower abdominal quadrant pain radiating to flank CBC normal with no leukocytosis, no rais in inflammatory markers Urine culture on 07/20/2025 showed E coli resistant to cefazolin and Bactrim. Continue antibiotic ceftriaxone 1 g IV daily and metronidazole 500 mg IV q.12h, day 6. And hydration with normal saline at 100 mL/hour. Recurrent diverticulitis Diffuse tenderness on deep palpation in the abdomen. Pain 20 minutes after consumption of food, abdominal pain while passing stools and urine. CBC were normal with no leukocytosis. CT with oral contrast of the abdomen and pelvis ruled out perforation or mass due to diverticulitis. Symptoms not improving with antibiotics, surgery, Dr. Figueroa consulted. On full liquid diet. Code status: Full code DVT prophylaxis: SCDs Analgesia/sedation: Morphine/[place] Line/tube: PIV GI prophylaxis: None Nutrition: Full liquid PT: Ordered. Prognosis: Guarded Disposition: Continue medical management with IV antibiotics and pain killers Keri Sigala MD PGY1, Internal Medicine [facility] Date of Service: Jul 27, 2025 Billing Provider: LURDES ROJAS MD Common Visit Codes: [id number] INP/OBS CARE(HIGH) KERI SIGALA, RES Jul 27, 2025 16:14 LURDES ROJAS MD Jul 28, 2025 08:02
--- NOTE | 2025-07-27 16:48 | PROGRESS NOTE ---
Progress Note ID Providers to CC ~ Progress Note Progress Note: pt seen and examined-findings consistent with recurrent diverticulitis-rec medical management ANNE-MARIE ALLISON MD Jul 27, 2025 16:48
[2025-07-28 02:00] VITALS: BP 117/66; PULSE 110; RESP 15; TEMP 99.3; O2SAT 97
[2025-07-28 06:00] VITALS: BP 106/54; PULSE 86; RESP 18; TEMP 97.8; O2SAT 100
[2025-07-28 07:03] LABS: MEAN PLATELET VOLUME 9.6 FL (7.4-10.4); RED CELL DISTRIBUTION WIDTH 13.2 % (11.5-14.5)
[2025-07-28 07:16] LABS: CREATININE 0.71 MG/DL (0.40-0.90); TOTAL CARBON DIOXIDE 27.5 MMOL/L (24-32); eCRCL 57 ML/MIN; eGFR 84 ML/MIN
[2025-07-28] MEDS ORDERED: metoclopramide 5 mg/ml inj IV PRN (08:05)
--- NOTE | 2025-07-28 10:30 | RADIOLOGY REPORT ---
CLINICAL INDICATION: swelling TECHNIQUE: 3 radiographic views of the left ankle were obtained. Comparison: ANKLE, COMPLETE(3VW MIN) on DOS: 04/17/20 FINDINGS/IMPRESSION: There is no evidence of acute fracture or dislocation. The visualized joint space is well maintained. Small plantar calcaneal enthesophyte. The alignment is anatomical. There is no radiopaque foreign body.
[2025-07-28 10:55] VITALS: BP 129/67; PULSE 86; RESP 14; TEMP 97.8; O2SAT 98
[2025-07-28] MEDS: metoclopramide 5 mg/ml inj IV SCH (11:55)
[2025-07-28 18:00] VITALS: BP 113/65; PULSE 83; RESP 17; TEMP 97.1; O2SAT 97
--- NOTE | 2025-07-28 18:03 | PROGRESS NOTE- Residence ---
Progress Note - Resident Providers to CC Resident Creating Document: KERI ESPINAL, TRAVIS ~ Central Line/PICC still needed: N\A Tay-Non Protocol Tay Indications Met/Not Met: F/C Indications Not Met Antibiotic Timeout Antibiotic Ordered?: Yes Subjective Patient was examined bedside. She complains of diffuse abdominal pain, more in the lower quadrant unchanged from yesterday. She describes it has dull aching, intermittent, radiating to flank, 7/10, well controlled with medication. She complains of pain the abdomen right after eating food, which has caused her to significantly reduce consumption although she does better with liquid diet, 820- 30% of her plate. She also complains of abdominal pain with bowel and bladder movements. Last bowel movement 2 days ago with enema. She complains of left knee swelling without any trauma. Bilateral peripheral pulses felt, no calf tenderness. No redness. Objective Vital Signs Date Time Temp Pulse Resp B/P (MAP) Pulse Ox O2 Delivery O2 Flow Rate FiO2 07/28/25 17:07 16 07/28/25 10:55 97.8 86 129/67 (87) 98 Room Air 07/28/25 08:00 0.0 Result Diagram: 07/28/25 0638 07/28/25 0638 General: Well alert, well oriented, not confused, not agitated, not in acute distress, well cooperated during the physical. HEENT: Conjunctive are pink, sclerae clear, no icterus, pupil is equal in both sides, reactive to light, no ear discharge, no pharyngeal erythema or an edema. Neck: Supple, no JVD, no lymphadenopathy and thyromegaly. Chest: Equal air entry on both lungs, no added sounds, no wheeze. Cardiovascular: S1-S2 regular sinus rhythm and, regular rate, no gallops, no rubs, no murmurs Abdomen: Soft, nondistended, tenderness on superficial palpation in epigastric, and in right and left lower quadrant. no guarding, no rigidity Extremities: No obvious deformities, no pitting edema bilaterally, capillary refill intact, peripheral pulsations are intact on both sides Central Nervous System: No focal neurological deficits, no motor or sensory weakness in all 4 extremities, could move all 4 extremities, 2+ deep tendon reflexes, negative Babinski. Musculoskeletal: No joint swelling, deformities, inflammations, and no scoliosis and back tenderness Skin: Warm and dry. Assessment Assessment This is a 59-year-old female with past medical history of recurrent UTI and diverticulitis who presented to the ED with complaints of UTI and diverticulitis. She underwent CTA of the abdomen pelvis which showed resolving diverticulitis with no cholecystitis. CT with oral contrast showed ileus with small bowel measuring 2.8 cm with no transition point. This might be due to her pain medications, constipation and sluggish bowel during activity. She is currently being treated with IV antibiotics for UTI and diverticulitis. Although her lab work and imaging shows improvement, the patient mentions no change in his symptoms with constant abdominal pain when she eats and uses the bathroom. Started on Reglan for ileus. She complains of left knee swelling without any trauma. Bilateral peripheral pulses felt, no calf tenderness. No redness. Plan Plan Acute pyelonephritis, complicated recurrent UTI. Bilateral lower abdominal quadrant pain radiating to flank CBC normal with no leukocytosis, no raise in inflammatory markers Urine culture on 07/20/2025 showed E coli resistant to cefazolin and Bactrim. Continue antibiotic ceftriaxone 1 g IV daily and metronidazole 500 mg IV q.12h, day 7. And hydration with normal saline at 100 mL/hour. Recurrent diverticulitis, resolving as per imaging Small-bowel ileus, measuring 2.8 cm, most likely due to pain medication, inactivity, no transition point. Possible inflammatory bowel disease with extraintestinal manifestation versus gout Diffuse tenderness on deep palpation in the abdomen. Pain 20 minutes after consumption of food, abdominal pain while passing stools and urine. No blood in stools, no dark tarry stools. Atraumatic left ankle swelling. CBC were normal with no leukocytosis. Elevated ESR Started the patient on prednisone 40 mg IV b.i.d.. Code status: Full code DVT prophylaxis: SCDs Analgesia/sedation: Morphine/[place] Line/tube: PIV GI prophylaxis: None Nutrition: Full liquid PT: Ordered. Prognosis: Guarded Disposition: Continue medical management with IV antibiotics , prednisone and pain management Keri Espinal MD PGY1, Internal Medicine [facility] Addendum persistent abd pain after food ingestion, poor oral intake, bowel sounds diminished; poss ileus; started reglan scheduled, try relistor Date of Service: Jul 28, 2025 Billing Provider: LURDES ROJAS MD Common Visit Codes: [id number] INP/OBS CARE(HIGH) KERI ESPINAL, RES Jul 28, 2025 18:03 LURDES ROJAS MD Jul 29, 2025 07:23
[2025-07-28] MEDS: methylPREDNISolone sod succ/PF 40mg inj. IV SCH (19:48)
[2025-07-28 20:00] VITALS: RESP 17; O2SAT 97
[2025-07-28 22:00] VITALS: BP 105/62; PULSE 89; RESP 16; TEMP 97.6; O2SAT 97
[2025-07-29 06:00] VITALS: BP 98/61; PULSE 66; RESP 16; TEMP 97.6; O2SAT 97
[2025-07-29 08:34] LABS: MEAN PLATELET VOLUME 9.6 FL (7.4-10.4); RED CELL DISTRIBUTION WIDTH 12.9 % (11.5-14.5)
[2025-07-29 08:47] LABS: CREATININE 0.52 MG/DL (0.40-0.90); TOTAL CARBON DIOXIDE 26.1 MMOL/L (24-32); eCRCL 77 ML/MIN; eGFR > 90 ML/MIN
[2025-07-29 10:00] VITALS: BP 112/61; PULSE 74; RESP 16; TEMP 97.8; O2SAT 98
[2025-07-29] MEDS ORDERED: HYDR-3965 PO (12:31)
[2025-07-29] MEDS ORDERED: PRED10TA23 PO (18:01)
[2025-07-29] MEDS ORDERED: METO5TAB85 PO (18:01)
--- NOTE | 2025-07-29 18:12 | DISCHARGE SUMMARY-Residence ---
Discharge Summary Providers to CC Resident Creating Document: ARMAND SIGALA, RES ~ Discharge Summary Admission Diagnosis: UTI Hospital Course DATE OF ADMISSION: 07/22/2025 DATE OF DISCHARGE: 07/29/2025 Discharge Diagnosis\Comment: Acute pyelonephritis with complicated recurrent UTI Recurrent diverticulitis Small-bowel ileus with no transitional point Acute gout Inflammatory bowel disease can not be ruled out. Operations\Procedures: None Consultants: Dr. Figueroa, surgeon Complications: None Condition on DC: Stable New Medications: Hydrocodone Bit/Acetaminophen 5/325 MG (Preston 5/325 MG) 5 Mg/325 Mg Tablet 1 TAB PO TID PRN PRN for pain for 5 Days, #15 TAB Continued Medications: Aspirin (Aspirin EC) 81 Mg Tablet.dr 1 TAB PO DAILY for 30 Days, #30 TAB Bupropion HCl (Wellbutrin Xl) 300 Mg Tab.er.24h 1 TAB PO QAM for 30 Days, #30 TAB 0 Refills Bupropion Hcl (Wellbutrin) 100 Mg Tablet 1 TAB PO Q12H for 30 Days, #60 TAB 0 Refills Cyclobenzaprine* (Cyclobenzaprine*) 10 Mg Tablet 1 TABLET PO Q6H PRN for muscle spasms, TABLET Estradiol (Estradiol) 1 Mg Tablet 1 TAB PO DAILY Hydrocodone Bit/Acetaminophen 5/325 MG (Preston 5/325 MG) 5 Mg/325 Mg Tablet 1 TAB PO Q6H PRN for pain, #20 TAB Pantoprazole Sodium (PROTONIX tablet) 40 Mg Tablet.dr 1 TABLET PO BID Sertraline Hcl* (Zoloft*) 25 Mg Tablet 1 TAB PO DAILY for 30 Days, #30 TAB 0 Refills Discharge Summary: History of present illness: This is a 59-year-old female who presented to the ED with chief complaints of bilateral lower abdominal pain radiating to flank. Abdominal pain was cramping type, 7/10 in intensity associated with nausea, aggravated with food intake and when using the restroom. She was diagnosed with UTI 2 days ago in the ER, With the cultures growing E coli sensitive to ceftriaxone. She has a history of recurrent UTI. 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 She had history of constipation and her last bowel movement was 7 days ago. Hospital course: During the course of hospitalization the patient was diagnosed with diverticulitis through imaging. She was started on IV antibiotics ceftriaxone and metronidazole target diverticulitis and pyelonephritis, which did not seem to improve her symptoms. She was given enema p.r.n. for constipation after which she had a bowel movement. No evidence of leukocytosis, fever spikes, no raised inflammatory markers. Her CT abdomen pelvis with and without IV contrast showed resolving diverticulitis. Her pain was managed by morphine and Preston. Surgeon, Dr. Figueroa was consulted who recommended medical management. Her CT abdomen and pelvis with oral contrast showed small bowel ileus with largest diameter of 2.8 cm, With no transition point. She was treated with Reglan for the same. She also developed an atraumatic left ankle swelling and she was not able to bear weight on left foot. She was started with IV methylprednisolone with a high suspicion of gout. She also had elevated ESR and suspicion of inflammatory bowel disease can not be excluded. She has been referred to gastroenterology clinic for follow up. Vital Signs Date Time Temp Pulse Resp B/P (MAP) Pulse Ox O2 Delivery O2 Flow Rate FiO2 07/29/25 10:00 97.8 74 16 112/61 (78) 98 Room Air 07/29/25 08:00 0.0 Laboratory Tests Test 07/28/25 06:38 07/28/25 11:53 07/29/25 07:50 White Blood Count 7.6 X10'3 8.8 X10'3 Red Blood Count 3.94 X10'6 3.36 X10'6 Hemoglobin 12.1 g/dl 10.1 g/dl Hematocrit 34.9 % 30.0 % Mean Corpuscular Volume 88.5 FL 89.4 FL Mean Corpuscular Hemoglobin 30.6 PG 30.1 PG Mean Corpuscular Hemoglobin Concent 34.6 g/dL 33.7 g/dL Red Cell Distribution Width 13.2 % 12.9 % Platelet Count 326 X10'3 301 X10'3 Mean Platelet Volume 9.6 FL 9.6 FL Neutrophils (%) (Auto) 61.4 % 74.0 % Lymphocytes (%) (Auto) 25.5 % 17.0 % Monocytes (%) (Auto) 11.5 % 8.3 % Eosinophils (%) (Auto) 1.1 % 0.2 % Basophils (%) (Auto) 0.5 % 0.5 % Neutrophils # (Auto) 4.7 X10'3 6.5 X10'3 Lymphocytes # (Auto) 1.9 X10'3 1.5 X10'3 Monocytes # (Auto) 0.9 X10'3 0.7 X10'3 Eosinophils # (Auto) 0.1 X10'3 0.0 X10'3 Basophils # (Auto) 0.0 X10'3 0.0 X10'3 CBC Comment Sodium Level 139 MMOL/L 140 MMOL/L Potassium Level 3.7 MMOL/L 3.6 MMOL/L Chloride Level 105 MMOL/L 110 MMOL/L Carbon Dioxide Level 27.5 MMOL/L 26.1 MMOL/L Anion Gap 7 4 Blood Urea Nitrogen 6 MG/DL 11 MG/DL Creatinine 0.71 MG/DL 0.52 MG/DL Estimated GFR/1.73 m2 84 ML/MIN > 90 ML/MIN BUN/Creatinine Ratio 8.5 21.2 Glucose Level 112 MG/DL 113 MG/DL Calcium Level 8.4 MG/DL 8.2 MG/DL Total Bilirubin 0.7 MG/DL Aspartate Amino Transf (AST/SGOT) 15 U/L Alanine Aminotransferase (ALT/SGPT) 7 U/L Alkaline Phosphatase 79 IU/L Total Protein 7.6 G/DL Albumin 2.8 G/DL 2.4 G/DL Globulin 4.8 G/DL Albumin/Globulin Ratio 0.6 Chemistry Comments Erythrocyte Sedimentation Rate 51 MM/HR Imaging: Abdomen and pelvis CTA: Diverticulitis of the sigmoid colon which overall appears less pronounced than on previous examination. Aortic atherosclerotic calcification disease. No evidence for high-grade stenosis or mesenteric occlusion. Other findings as described. Recommend colonoscopy once acute tendon interval to exclude a underlying sigmoid colon lesion. Abdomen pelvis CT with IV contrast: 1. Mildly distended small bowel loops measuring up to 2.8 cm which contain enteric contrast. Enteric contrast is also seen throughout the course of the colon down to the rectosigmoid junction. Findings may represent ileus. No transition point to suggest mechanical obstruction. 2. Sigmoid diverticulosis with minimal mucosal thickening and adjacent fat stranding may reflect ongoing diverticulitis. Findings may represent early diverticulitis. No fluid collection or pneumoperitoneum. 3. Nonobstructive RIGHT distal ureteral calculi. Left Foot and ankle x-ray: There is no evidence of acute fracture or dislocation. The visualized joint space is well maintained. Small plantar calcaneal enthesophyte. The alignment is anatomical. There is no radiopaque foreign body. Physical exam on discharge: General: Well alert, well oriented, not confused, not agitated, not in acute distress, well cooperated during the physical. HEENT: Conjunctive are pink, sclerae clear, no icterus, pupil is equal in both sides, reactive to light, no ear discharge, no pharyngeal erythema or an edema. Neck: Supple, no JVD, no lymphadenopathy and thyromegaly. Chest: Equal air entry on both lungs, no added sounds, no wheeze. Cardiovascular: S1-S2 regular sinus rhythm and, regular rate, no gallops, no rubs, no murmurs Abdomen: Bowel sounds present on auscultation, soft, nontender, no guarding, no rigidity Extremities: No obvious deformities, no pitting edema bilaterally, capillary refill intact, peripheral pulsations are intact on both sides Central Nervous System: No focal neurological deficits, no motor or sensory weakness in all 4 extremities, could move all 4 extremities, 2+ deep tendon reflexes, negative Babinski. Musculoskeletal: No joint swelling, deformities, inflammations, and no scoliosis and back tenderness Skin: Warm and dry. Discharge instructions: You have beem started on 3 new medication. Preston 5/325 mg for pain control as needed. Reglan 10 mg p.o. daily for 10 days Prednisone 20 mg for 7 days take your medication regularly. Soft bland low fiber diet. 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 Visit ER immediately in case of any emergencies including abd pain, constipation, nausea, vomiting, fever/chills. *Problems/Diagnosis: (1) UTI (urinary tract infection) Status: Acute (2) Abdominal pain Status: Acute (3) Foot pain Status: Acute (4) Complicated UTI (urinary tract infection) Status: Acute (5) Diverticulitis Status: Acute Total Time Spent on D/C: > 30 Minutes Counseling Services Smoking & Tobacco Cessation: N/A Date of Service: Jul 29, 2025 Billing Provider: LURDES ROJAS MD Common Visit Codes: [id number] DISCH DAY >30min ARMAND SIGALA, RES Jul 29, 2025 17:54 LURDES ROJAS MD Jul 30, 2025 06:31
== END 2025-07-29 13:25 | disposition home or self-care (01) | DRG 244 ==
LOC: ER 16:44 → ED HOLD 19:30 → PCU 3S 21:49 → SUR 3N 07-28 13:51
PROVIDERS: ADMIT Internal Medicine; ATTEND Internal Medicine
PROC: B4201ZZ Computerized Tomography (CT Scan) of Abdominal Aorta using Low Osmolar Contrast (ICD-10-PCS; 2025-07-25)
PROC: B4241ZZ Computerized Tomography (CT Scan) of Superior Mesenteric Artery using Low Osmolar Contrast (ICD-10-PCS; 2025-07-25)
PROC: B4281ZZ Computerized Tomography (CT Scan) of Bilateral Renal Arteries using Low Osmolar Contrast (ICD-10-PCS; 2025-07-25)
PROC: B42C1ZZ Computerized Tomography (CT Scan) of Pelvic Arteries using Low Osmolar Contrast (ICD-10-PCS; 2025-07-25)
PROC: B42H1ZZ Computerized Tomography (CT Scan) of Bilateral Lower Extremity Arteries using Low Osmolar Contrast (ICD-10-PCS; 2025-07-25)
PROC: B4211ZZ Computerized Tomography (CT Scan) of Celiac Artery using Low Osmolar Contrast (ICD-10-PCS; 2025-07-25)
PROC: BW211ZZ Computerized Tomography (CT Scan) of Abdomen and Pelvis using Low Osmolar Contrast (ICD-10-PCS; principal; 2025-07-27)
DX: K57.32 Diverticulitis of large intestine without perforation or abscess without bleeding (principal); K56.7 Ileus, unspecified; N10 Acute pyelonephritis; F32.A Depression, unspecified; M10.9 Gout, unspecified; M25.472 Effusion, left ankle; K21.9 Gastro-esophageal reflux disease without esophagitis; F41.9 Anxiety disorder, unspecified; E87.6 Hypokalemia; G43.801 Other migraine, not intractable, with status migrainosus; Z79.899 Other long term (current) drug therapy; Z90.710 Acquired absence of both cervix and uterus; Z86.73 Personal history of transient ischemic attack (TIA), and cerebral infarction without residual deficits; I25.2 Old myocardial infarction
CPT/HCPCS: 36415; 73610; 74174; 74176; 80048; 80053; 80061; 81003; 83036; 83605; 83690; 83735; 84145; 85025; 85651; 86140; 87040; 87081; 96365; 96368; 96375; 99285; A6258; G0378; J0696; J0744; J1171; J1644; J2270; J2405; J2765; J2919; J3490; J7030; J7040; J7512; Q9963; Q9967